=== PATIENT | female | born 1995 | race Caucasian/White ===

== ENCOUNTER 2018-12-26 15:01 | Emergency (ER) | payer OTHER, MEDICAID, SELFPAY ==
[2018-12-26 15:12] VITALS: BP 125/73; PULSE 118; RESP 16; TEMP 36.8; O2SAT 100; BMI 23.0
--- NOTE | 2018-12-26 16:11 | ED.DENTAL ---
HPI - Dental/Oral <Yvonne Booth PA-C - Last Filed: 12/26/18 22:18> General Chief complaint: Dental/Oral Stated complaint: MOUTH HURTS Time Seen by Provider: 12/26/18 15:18 Source: patient Mode of arrival: ambulatory Limitations: no limitations History of Present Illness HPI Narrative: This healthy 23-year-old female who denies any chronic medical problems comes in due to worsening left upper tooth pain for about a week. She has a dental appointment in 2 weeks, but felt like it was swollen around the tooth especially last night, a little bit better today, and comes in due to concern for infection. She states she has felt intermittently warm and cold since this started, no temperature is taken, no acute changes in the last couple of days. She denies any recent URI symptoms such as earache or sore throat. Denies any other complaints on systems review. Related Data Previous Rx's Medication Instructions Recorded amoxicillin 500 mg PO Q8H #21 cap 12/26/18 Allergies Allergy/AdvReac Type Severity Reaction Status Date / Time No Known Drug Allergies Allergy Verified 12/26/18 15:16 Review of Systems <Yvonne Booth PA-C - Last Filed: 12/26/18 22:18> Review of Systems ROS Unobtainable: All systems reviewed & are unremarkable except as noted in HPI and below PFSH <Yvonne Booth PA-C - Last Filed: 12/26/18 22:18> Medical History (Updated 12/26/18 @ 16:28 by Yvonne Booth PA-C) No chronic problems (Chronic) Surgical History (Updated 12/26/18 @ 16:28 by Yvonne Booth PA-C) Status post tonsillectomy (Chronic) Social History Smoking Status: Former smoker Social History Smoking Status: Former smoker Exam <Yvonne Booth PA-C - Last Filed: 12/26/18 22:18> Narrative Exam Narrative: GENERAL APPEARANCE: Patient sitting comfortably, in no distress. HEAD: No sinus TTP. EYES: PERRL, EOMI. EARS: Normal auditory canals, TMS intact with normal light reflexes. ORAL CAVITY: Somewhat poor dentition. Left upper molar is discolored and the gumline on the labial surface is mildly erythematous and edematous, tender to touch, no drainage or fluctuance. none present on the lingual surface. THROAT: Normal oropharynx NECK/THYROID: Neck supple, full range of motion LUNGS: Clear to auscultation bilaterally HEART: RRR without murmur, nl S1, S2, no S3 or S4. Initial Vital Signs Initial Vital Signs: Vital Signs Temperature 98.3 F 12/26/18 15:12 Pulse Rate 118 H 12/26/18 15:12 Respiratory Rate 16 12/26/18 15:12 Blood Pressure 125/73 12/26/18 15:12 Pulse Oximetry 100 12/26/18 15:12 <Gerda Arredondo DO - Last Filed: 12/29/18 07:49> Initial Vital Signs Initial Vital Signs: Vital Signs Temperature 98.3 F 12/26/18 15:12 Pulse Rate 118 H 12/26/18 15:12 Respiratory Rate 16 12/26/18 15:12 Blood Pressure 125/73 12/26/18 15:12 Pulse Oximetry 100 12/26/18 15:12 Course <Yvonne Booth PA-C - Last Filed: 12/26/18 22:18> Vital Signs - 8 hr 12/26/18 15:12 12/26/18 16:31 12/26/18 16:34 Temperature 98.3 F Pulse Rate 118 H 95 H Respiratory Rate 16 16 Blood Pressure 125/73 Blood Pressure [Right Arm] 108/70 108/70 Pulse Oximetry 100 100 <Gerda Arredondo DO - Last Filed: 12/29/18 07:49> Vital Signs - 8 hr 12/26/18 15:12 12/26/18 16:31 12/26/18 16:34 Temperature 98.3 F Pulse Rate 118 H 95 H Respiratory Rate 16 16 Blood Pressure 125/73 Blood Pressure [Right Arm] 108/70 108/70 Pulse Oximetry 100 100 Discharge Plan Departure Patient Disposition: Home Clinical Impression: Dental infection Discharge Date/Time: 12/26/18 16:36 Interventions: ED Discharge Assessment Last Done: 12/26/18 16:35 Instructions: DI for Dental Pain Activity Restrictions/Additional Instructions: Please call [facility] when you leave here today and let them know you were in the emergency room and that the tooth that has been giving you pain looked infected and you started an antibiotic. Hopefully they will be able to see you this week. There is also a [facility] in [place]. Please see your PCP or return to the ED if you have acutely worsening symptoms in the interim. Please continue your ibuprofen 3-4 tablets every 8 hours to help with pain and inflammation. Continue your [id number] topical anesthetic on the area. You can also add Tylenol as needed. I have sent in a prescription for antibiotic, amoxicillin, to your pharmacy Prescriptions: New amoxicillin 500 mg capsule 500 mg PO Q8H Qty: 21 RF: 0 Referrals: [facility] [place] [Other] <Gerda Arredondo DO - Last Filed: 12/29/18 07:49> [facility] Attending Trang Attestation: I was immediately available in the department for consultation. Documentation has been reviewed. I agree with assessment and plan.
[2018-12-26 16:31] VITALS: BP 108/70; PULSE 95; RESP 16; O2SAT 100
[2018-12-26 16:34] VITALS: BP 108/70
== END 2018-12-26 16:36 | disposition home or self-care (01) ==
PROVIDERS: Emergency Provider Internal Medicine
DX: K04.7 Periapical abscess without sinus (principal)
CPT/HCPCS: 99282; 99283

== ENCOUNTER 2019-05-10 20:47 | Emergency (ER) | payer OTHER, MEDICAID, SELFPAY ==
[2019-05-10 20:53] VITALS: BP 101/58; PULSE 90; RESP 16; O2SAT 95
--- NOTE | 2019-05-10 21:01 | ED_ITS ---
HPI - Recheck/Abnormal Lab/Rx General Chief Complaint: Recheck/Abnormal Lab/Rx Stated Complaint: Fit for Mcfp Time Seen by Provider: 05/10/19 20:52 Source: patient and police Mode of arrival: other (Please) Limitations: no limitations History of Present Illness HPI narrative: Patient is a 23-year-old female brought in by police for fit for confinement. Patient states she has no medical problems. She states she is currently . She states she is ?for months? . She has been seen prior in this . She states she did have an ultrasound and was told everything was ?okay ?she has not seen a provider since that time. She denies any abdominal pain or vaginal bleeding or loss of fluid or urinary symptoms. She denies any other symptoms. She is brought in for fed for confinement because of her status. Related Data Previous Rx's Medication Instructions Recorded amoxicillin 500 mg PO Q8H #21 cap 12/26/18 vit,[id number] 1 tab PO DAILY #30 tab 05/10/19 [PNV 29-1] Allergies Allergy/AdvReac Type Severity Reaction Status Date / Time No Known Drug Allergies Allergy Verified 12/26/18 15:16 Review of Systems Constitutional Constitutional: Denies headache(s) ENT Ears, Nose, Mouth, and Throat: Denies headache(s) Cardiovascular Cardiovascular: Denies chest pain and Denies dyspnea Respiratory Respiratory: Denies dyspnea Gastrointestinal Gastrointestinal: Denies abdominal pain, Denies nausea and Denies vomiting Genitourinary Genitourinary: Denies dysuria and Denies vaginal discharge Musculoskeletal Musculoskeletal: Denies myalgias and Denies arthralgias Integumentary/Breasts Skin/Breast: Denies lesions and Denies rash Neurologic Neurologic: Denies behavioral changes and Denies headache(s) Psychiatric Psychiatric: Denies behavioral changes Hematologic/Lymphatic Hematologic/Lymphatic: Denies easy bleeding and Denies easy bruising PFSH Medical History No chronic problems (Chronic) Surgical History (Updated 12/26/18 @ 16:28 by Yvonne Booth PA-C) Status post tonsillectomy (Chronic) Social History Smoking Status: Former smoker Social History Smoking Status: Former smoker Exam Initial Vital Signs Initial Vital Signs: Vital Signs Pulse Rate 90 05/10/19 20:53 Respiratory Rate 16 05/10/19 20:53 Blood Pressure 101/58 L 05/10/19 20:53 Pulse Oximetry 95 05/10/19 20:53 Const General: cooperative and comfortable Orientation: alert, awake and oriented x3 HENMT Head: normal to inspection and normocephalic Resp Effort & Inspection: normal respiratory effort Auscultation: clear to auscultation bilaterally Cardio Rate: regular rate Rhythm: regular rhythm GI Other: Gravid abdomen Skin Lesions: no lesions Rashes: no rashes Neuro General: alert and awake Cognition: normal cognition Speech: speech normal Extrem General: normal to inspection and capillary refill normal Psych Appearance: grossly normal and well kempt Course Vital Signs Vital signs: Vital Signs - 8 hr 05/10/19 20:53 Pulse Rate 90 Respiratory Rate 16 Blood Pressure 101/58 L Pulse Oximetry 95 MDM - Recheck/Abnormal Lab/Rx MDM Narrative Medical decision making narrative: Patient is . Her heart tones were in the 150s. She has no symptoms consistent with related issues. She is fit for confinement. She has no other complaints. She is tolerating oral intake. She was given a prescription for vitamins. Was put on her discharge paperwork that she should be taking vitamins on a daily basis. Paperwork was given to patient and police communications operator. Discharge Plan Departure Patient Disposition: Home Clinical Impression: Qualifiers: Weeks of gestation: 20 weeks Qualified Code(s): Z3A.20 - 20 weeks gestation of Discharge Date/Time: 05/10/19 21:19 Activity Restrictions/Additional Instructions: You are fit for assisted. The assisted medical staff does need to follow your status. You do need to receive a daily vitamin. Your given a prescr iption for this. You can return to the emergency department for any new or worsening symptoms Prescriptions: New PNV 29-1 29 mg iron- 1 mg tablet 1 tab PO DAILY Qty: 30 RF: 0 No Action amoxicillin 500 mg capsule 500 mg PO Q8H Qty: 21 RF: 0
== END 2019-05-10 21:19 | disposition home or self-care (01) ==
PROVIDERS: Emergency Provider Emergency Medicine
CPT/HCPCS: 99282

== ENCOUNTER → 2019-07-25 12:59 | Outpatient (CLI) | payer OTHER, MEDICAID, SELFPAY ==
[2019-07-25 14:05] LABS: Add Manual Diff / Slide Review NO; Basophils Absolute Auto 0 /uL (0-100); Basophils Percent Auto 0.1 % (0-2); Eosinophils Absolute Auto 200 /uL (0-450); Eosinophils Percent Auto 1.8 % (2-4); Hematocrit 33.6 % (36-46); Hemoglobin 11.4 g/dL (12.0-16.0); Lymphocytes Absolute Auto 2100 /uL (1100-4500); Mean Corpuscular Hemoglobin 29.9 PG (26-34); Mean Corpuscular Volume 87.9 fL (80-100); Monocytes Absolute Auto 700 /uL (0-900); Monocytes Percent Auto 8.7 % (3-14); Neutrophils Absolute Auto 5500 /uL (1500-7000); Neutrophils Percent Auto 64.4 % (50-75); Platelet Count 192 X10^3/uL (150-400); Red Blood Cell Count 3.82 X10^6/uL (4.0-5.2); Red Cell Distribution Width 12.3 % (11.6-14.8); White Blood Cell Count 8.6 X10^3/uL (4.5-11.0)
[2019-07-25 14:26] LABS: Bilirubin Urine UA NEGATIVE (NEGATIVE); Color Urine UA YELLOW; Glucose Urine UA NEGATIVE (Negative); Ketones Urine UA NEGATIVE (NEGATIVE); Leukocyte Esterase Urine UA TRACE (NEGATIVE); Nitrite Urine UA NEGATIVE (Negative); Occult Blood Urine UA NEGATIVE (Negative); Protein Urine UA NEGATIVE (Negative); Specific Gravity Urine UA 1.015 (1.000-1.035)
[2019-07-25 14:27] LABS: pH Urine UA 6.5 (4.5-8.0)
[2019-07-25 14:28] LABS: Appearance Urine UA Slightly Cloudy; RBC Urine None Seen (0-5/HPF)
[2019-07-25 14:38] LABS: Amorphous Sediment Urine 1+; Bacteria Urine Many (>30); Mucus Urine 1+ (Negative); Squamous Epithelial Cell Urine 0-1 /HPF (0-5/HPF); WBC Urine 10-30/HPF (0-5/HPF)
[2019-07-25 15:19] LABS: Hepatitis B Surface Antigen NEGATIVE s/c (NEGATIVE); Rubella Antibody IgG 52.9 IU/mL (>15)
[2019-07-25 15:56] LABS: HIV 1 & 2 Ab/Ag 4th Gen Combo NEGATIVE (NEGATIVE); Hep C Virus Ab w/Reflex Quant NEGATIVE s/c (NEGATIVE)
[2019-07-28 23:41] LABS: RPR Screen Nonreactive (Nonreactive)
== END ==
PROVIDERS: Visit Provider Family Medicine
DX: O09.32 Supervision of pregnancy with insufficient antenatal care, second trimester (principal); O99.320 Drug use complicating pregnancy, unspecified trimester
CPT/HCPCS: 36415; 80055; 81003; 81015; 86787; 86803; 86850; 86900; 86901; 87077; 87086; 87186; 87389

== ENCOUNTER → 2019-08-03 10:11 | Outpatient (CLI) | payer OTHER, MEDICAID, SELFPAY ==
--- NOTE | 2019-08-03 10:11 | DI.US.S_ITS ---
PROCEDURE: US OB >= 14 WEEKS FETUS INDICATIONS: ANATOMY OUTSIDE/PRIOR DATING DATA: First dating scan (date and location): 08/03/19. Estimated date of delivery (CRYS) from first dating scan: 10/18/19. TECHNIQUE: Real-time scanning was performed of the fetus, with image documentation and biometric measurements. Endovaginal scanning: No COMPARISON: None. FINDINGS: General: A single living intrauterine gestation is present. Presentation: Vertex. Placenta: Placental position is posterior, without previa. Amniotic fluid index: 12.1 cm, normal range is 5-24 cm. heart rate: 141 beats per minute. Maternal cervical canal: 3.2 cm long. Normal lower limit is 2.5 cm. biometrics: Biparietal diameter: 29 weeks Head circumference: 29 weeks 5 days Abdominal circumference: 29 weeks 2 days Femur length: 28 weeks 5 days Estimated gestational age from initial scan: not applicable. Composite gestational age from present scan: 29 weeks 1 day Estimated weight and percentile: 1336 g Measurement variability for biometric dating: +/- 7 days from 14 weeks to 15 weeks 6 days gestation, +/- 10 days from 16 weeks to 21 weeks 6 days gestation, +/- 2 weeks from 22 weeks to 27 weeks 6 days gestation, +/- 3 weeks for 28 weeks gestation or later. weight reference: 4500 g or EFW >90/95% is considered macrosomia or large for gestational age. EFW <10% is small for gestational age. EFW 5% or less is considered intra-uterine growth restriction. Anatomic survey: Neuro: Ventricles are non-dilated at less than 10 mm. cisterna magna and cerebellum are not well visualized. Nuchal skin fold: Not well-visualized. Face: Nose and lips, facial profile are normal. Spine: Not well-visualized. Heart: 4-chambered heart is present, with normal ventricular outflow tracts. Diaphragm: Diaphragm is intact. Stomach: Left-sided stomach is present. Kidneys: No hydronephrosis. Normal is less than 5 mm in 2nd trimester, less than 7 mm in 3rd trimester. Cord: 3-vessel cord has orthotopic insertion. Bladder: Normal in size. Extremities: All 4 extremities identified. IMPRESSION: 1. Single living IUP with mean composite gestational age of 29 weeks 1 day corresponding to ultrasound CRYS of 10/18/19. 2. Limited anatomic survey as above. Posterior fossa, nuchal region, and spine are not well seen. Recommend followup examination. Dictated by: Santo ESPINAL Interpreted: Kirill Gracia MD on 08/03/2019 at 13:10 Approved by: Kirill Gracia M.D. on 08/03/2019 at 16:05
== END ==
PROVIDERS: Visit Provider Family Medicine
DX: Z34.83 Encounter for supervision of other normal pregnancy, third trimester (principal); Z3A.29 29 weeks gestation of pregnancy
CPT/HCPCS: 76811

== ENCOUNTER 2019-10-10 20:56 | Inpatient (IN) | payer OTHER, MEDICAID, SELFPAY ==
--- NOTE | 2019-10-10 21:50 | P.HPOB_ITS ---
OB HPI Date/Time Date of admission: 10/10/19 Date Patient Seen: 10/11/19 Time Patient Seen: 07:30 History of Present Condition Chief complaint: Obs : 4 Para: 0 Estimated Date of Delivery: 10/13/19 Estimated Gestational Age (weeks): 39w5d Narrative: Germaine Porter is a 23 year old at 39w5d who presented in active labor. She had light spotting prior to presentation, and no LOF. She was feeling baby move regularly. Contractions felt like a lot of pelvic pressure, and were occurring every 5 minutes. The pts was complicated by ongoing heroine abuse and Suboxone. She reports last using heroine on 10/09, and last taking Suboxone on 10/08. She is prescribed Suboxone by [facility] in [facility]. The pt had no care throughout this . She came to her OB intake appointment at 28w4d, and had lab work completed and a 3rd trimester ultrasound completed. Her initial urine grew E coli, which was never treated due to the pt not returning phone calls from our clinic. History of Present care: none Dating criteria: other (LMP confirmed by 3rd trimester ultrasound) Ultrasounds: normal mid trimester US Narrative: No care. Heroine and suboxone use during . Preadmission Labs Blood type: A (+) positive -: Antibody screen: negative, GBS status: unknown, HBsAG: negative, HIV: negative and RPR/VDLR: negative -: Rubella: immune and Varicella: immune HCT: 33.6 HCAB: negative Urine: E coli - untreated Prior (ies) History: 08/30/12 - elective 01/28/14 - elective 03/30/19 - spontaneous Evaluation Evaluation Baseline heart rate: 120 Variability: Moderate (11-25) monitor accelerations: Present monitor decelerations: Absent Contraction Frequency (minutes): 5 Uterine Contraction Intensity: Strong/Firm Category of Tracing: I Cervical dilation (cm): 5 Cervical effacement (%): 90 station: 0 PFSH Medical History (Updated 07/25/19 @ 12:21 by Chelsea Beckford RN) Kidney infection (Acute) No chronic problems (Chronic) Surgical History (Updated 07/25/19 @ 12:21 by Chelsea Van Rooyen, RN) Status post tonsillectomy (Chronic) Family History (Updated 07/25/19 @ 12:13 by Chelsea Beckford RN) Father Diabetes mellitus Grandmother Lung cancer Grandfather No problems noted. Grandfather Liver cancer Social History marital status: unmarried,living together education level: high school occupational status: unemployed current occupational exposures/hazards: No special kemal needs: No leisure activities: exercise Smoking Status: Former smoker (FOB smokes - discussed) Meds Home Medications and Allergies Home Medications Medication Instructions Recorded Confirmed Type No Known Home Medications 10/11/19 10/11/19 History Allergies Allergy/AdvReac Type Severity Reaction Status Date / Time No Known Drug Allergies Allergy Verified 07/25/19 13:03 Exam Narrative Exam Narrative: Gen: NAD, laying in bed, appears uncomfortable, fidgeting in bed CV: RRR, no murmurs Resp: clear to auscultation bilaterally Abd: soft, gravid Ext: no edema Objective Labs Result Diagrams: 10/10/19 22:15 Assessment and Plan Assessment and Plan Assessment and Plan narrative: 23yo at 39w5d based on LMP with 3rd tr imester ultrasound who presented in active labor. Pt with no care, and on suboxone while also actively using heroine. Pt did have labs and 3rd trimester ultrasound completed earlier in . Ultrasound not completed, visualized no anomalies. Urine tox positive for opiates and methamphetamines. - Expectant management, anticipate - FHT reassuring - GBS unknown, penicillin given - Rh positive - Epidural for pain control For heroine abuse and suboxone therapy - - Obtain records from [facility], prescriber of suboxone - Social work consulted. Pt interested in inpatient treatment - Pt aware that baby will be transferred due to high risk for withdrawals - Pt showing some evidence of withdrawal today. Dependent on records from [facility], may give Suboxone while in the hospital - HIV testing
[2019-10-10] MEDS: LACTATED RINGERS 1,000 ML 100 ML IV (22:30)
[2019-10-10 22:43] LABS: Add Manual Diff / Slide Review NO; Basophils Absolute Auto 0 /uL (0-100); Basophils Percent Auto 0.1 % (0-2); Eosinophils Absolute Auto 0 /uL (0-450); Eosinophils Percent Auto 0.1 % (2-4); Hematocrit 31.9 % (36-46); Hemoglobin 10.5 g/dL (12.0-16.0); Lymphocytes Absolute Auto 1400 /uL (1100-4500); Lymphocytes Percent Auto 9.7 % (25-40); Mean Corpuscular HGB Conc 32.8 % (30-36); Mean Corpuscular Hemoglobin 25.8 PG (26-34); Mean Corpuscular Volume 78.8 fL (80-100); Monocytes Absolute Auto 1100 /uL (0-900); Monocytes Percent Auto 7.5 % (3-14); Neutrophils Absolute Auto 12300 /uL (1500-7000); Neutrophils Percent Auto 82.6 % (50-75); Platelet Count 170 X10^3/uL (150-400); Red Blood Cell Count 4.05 X10^6/uL (4.0-5.2); Red Cell Distribution Width 13.9 % (11.6-14.8); White Blood Cell Count 14.9 X10^3/uL (4.5-11.0)
[2019-10-10] MEDS: FENT 2MCG/ML BUPIV 0.125% EPI 200 MCG/100 ML PLAST..BAG 11 MCG EPIDURAL (23:30)
[2019-10-10 23:42] VITALS: BP 123/88
[2019-10-10 23:46] LABS: HIV 1 & 2 Ab/Ag 4th Gen Combo NEGATIVE (NEGATIVE)
[2019-10-11] MEDS: LACTATED RINGERS 1,000 ML 100 ML IV ×2 (00:33→07:37)
[2019-10-11] MEDS: PENICILLIN G POTASSIUM 5,000,000 UNIT in DEXTROSE 5% IN WATER 250 ML IV (01:12)
[2019-10-11 01:34] LABS: Ur Creatinine Normal (Normal); Ur Specific Gravity Normal (Normal); Urine pH Normal (Normal)
[2019-10-11 01:35] LABS: UR Morphine/Opiate cutoff 300 Positive (Negative); Urine Amphetamines Negative (Negative); Urine Barbiturates Negative (Negative); Urine Benzodiazepines Negative (Negative); Urine Cocaine Negative (Negative); Urine MDMA Negative (Negative); Urine Methadone Negative (Negative); Urine Methamphetamines Positive (Negative); Urine Oxycodone Negative (Negative); Urine Phencyclidine Negative (Negative); Urine Tetrahydrocannabinol Negative (Negative); Urine Tricyclic Antidepressant Negative (Negative)
[2019-10-11] MEDS: PENICILLIN G POTASSIUM 3,000,000 UNIT/50 ML FROZ.PIGGY 100 UNIT IV ×2 (05:03→09:26)
[2019-10-11] MEDS: FENT 2MCG/ML BUPIV 0.125% EPI 200 MCG/100 ML PLAST..BAG 13 MCG EPIDURAL (06:30)
--- NOTE | 2019-10-11 09:35 | PM.OBPNLAB ---
Date/Time Date Patient Seen: 10/11/19 Time Patient Seen: 08:00 Pain Control Pain control: epidural Pelvic Exam Dilation (cm): 10 Effacement (%): 100 station: +1 Amniotic membrane status: Ruptured Comments: After informed consent, AROM performed. Contractions Contraction intensity: Strong/Firm Status status: Category l Heart Rate Baseline: 165 Monitor Accelerations: Present Monitor Decelerations: Absent Monitor Variability: Moderate Assessment and Plan Comments: 23yo at 39w5d based on LMP with 3rd trimester ultrasound who presented in active labor. Pt with no care, and on suboxone while also actively using heroine. Pt did have labs and 3rd trimester ultrasound completed earlier in . Ultrasound not completed, visualized no anomalies. Urine tox positive for opiates and methamphetamines. AROM performed with production of clear fluid. - Expectant management, anticipate - FHT reassuring. Slight tachycardia - pt just AROMed, afebrile. Will continue to monitor - GBS unknown, penicillin given, received 2 doses thus far - Rh positive - Epidural for pain control For heroine abuse and suboxone therapy - - Obtain records from [facility], prescriber of suboxone - Social work consulted. Pt interested in inpatient treatment - Pt aware that baby will be transferred due to high risk for withdrawals - Pt showing some evidence of withdrawal today. Dependent on records from [facility], may give Suboxone while in the hospital - HIV negative
[2019-10-11] MEDS: OXYTOCIN 10 UNIT/ML VIAL 20 UNIT (10:03)
--- NOTE | 2019-10-11 10:29 | PM.OBPRVD ---
 Events: No Care Labor & Delivery Delivery date: 10/11/19 Intrapartal events: None Cervical ripening method: none Induction method: none Delivery augmentation: rupture of membranes Delivery monitor: external FHT Route of delivery: Episiotomy description: None L&D Laceration Description: Perineal - 2nd Degree and Labial Delivery repair: chromic Estimated blood loss (mL): 400 Anesthesia type: Epidural Complications: None Narrative: PROCEDURE: at 39w5d presented in active labor and was admitted to Labor and Delivery. The patient progressed through the 1st stage over 19 hours. Pain was controlled with an epidural. AROM was performed with production of clear fluid. The pt received a total of 3 doses of penicillin for unknown GBS status. The patient progressed through the 2nd stage over 2 hours and delivered a viable male infant with APGARs 9/9 at 9:54am via without complications. The baby cried immediately, and was placed on maternal abdomen. The cord was clamped and cut after it stopped pulsing. The perineum and vagina were inspected with 2nd degree laceration repaired with 3-O Chromic.. PREPROCEDURE DIAGNOSIS: Intrauterine at 39w5d GBS unknown RH positive Substance abuse No care POSTPROCEDURE DIAGNOSIS: Intrauterine at 39w5d, delivered Same as preprocedure ROM APPEARANCE: Clear BABY A DELIVERY TIME: 9:54am BABY A WEIGHT: 7lb4.1oz BABY A NUCHAL CORD: None PLACENTA DELIVERY TIME: 10:02am PLACENTA APPEARANCE: Intact [place] Baby 1: gender: Male Presentation: vertex position: Right Occiput Anterior Placenta delivery description: Spontaneous cord vessel description: 3 Vessels score (1 min): 9 score (5 min): 9 Plan for aftercare: Normal care Social work consult
--- NOTE | 2019-10-11 12:45 | CM.DANOTE ---
Called to room 8 because pt. has recently given and has been taking saboxone for hisotry of heroine addiction. Nurses report that patient has requested substance abuse rehab because she wants to keep her baby and is motivated to show the state she can be safe. Nursess had removed patient's mother and the baby's father so I could talk to patient I met with patient a couple hours after delivery. She was calm and serene as she held the baby. She seemed very enchanted by him and kept saying how cute and sweet' he was. I asked her about her plans from here. She said she lived with her boyfriend (baby's father) in a trailer locally. He is very happy about being a father and wants to keep the baby if the state takes it away from patient. [facility] currently goes [facility] her [facility]... she's been going there for two months. She is on again and off again with them and [facility] in [facility]. It depends on her living situation. I had a hard time following her timeline with heroine use and care. It seems she has been on Suboxone and Methadone to assist with her heroin addictions for a couple years now She is vague and non-committed to answering when she started. Last year she went to [facility] for Methadone treatment but the boyfriend she had at the time got kicked out so she left. She is now motivated to stay away from heroin for her baby sake. She reports using heroin twice for only a few days earlier in the . She states she is open to watever program she can bounce into. she has no preference to either inpatient or outpatient. L& D nurse is contacting CPS about the patients son.
[2019-10-11] MEDS: IBUPROFEN 600 MG TABLET PO ×2 (15:24→21:37)
[2019-10-11] MEDS: DERMOPLAST SPRAY 20% 60 ML 1 SPRAY TOP (15:25)
[2019-10-12] MEDS: IBUPROFEN 600 MG TABLET PO (04:31)
--- NOTE | 2019-10-12 09:31 | P.DS_ITS ---
Discharge Providers Provider Date of admission: 10/10/19 20:56 Discharge Date: 10/12/19 Consults: 10/11/19 08:02 Consult to ACCOUNTS PAYABLE ADMINISTRATOR - Tomato Grader Routine Comment: ACCOUNTS PAYABLE ADMINISTRATOR Consult: Substance Abuse Assess 10/12/19 10:28 Consult to Customer Solutions Architect Routine Comment: Discharge provider: Vivi Baker MD Summary Hospital Course Date Patient Seen: 10/12/19 Time Patient Seen: 08:30 Procedures: Spontaneous vaginal delivery Hospital Course: The patient presented active labor. She received an epidural for pain control. AROM was performed with production of clear fluid. She had a spontaneous va ginal delivery of a viable baby boy on 10/11/19. A 2nd degree perineal laceration was repaired. , there were no complications. The patient showed no signs of significant withdrawal. At the time of discharge, she was voiding, passing flatus, and ambulating without difficulty. Her lochia was decreasing appropriately. Her pain was adequately controlled. She is not . She had no signs of engorgement. She will follow-up in clinic in 6 weeks for her check. Social work will meet with the pt prior to discharge to help determine inpatient vs outpatient treatment options for her substance abuse. Peripartum Data Delivery Method: Natural Vaginal Laceration description: Perineal - 2nd Degree Episiotomy description: None Procedures: Spontaneous vaginal delivery complications: none [place] 1: Gender: Male Disposition of : other (CPS hold) Status at Discharge Cognitive/behavioral status at discharge: oriented Functional status at discharge: independent ambulation Overall status at discharge: patient is progressing back to baseline Time Spent with Patient Time attestation: Total time spent providing and/or coordinating discharge services: Time spent: Greater than 30 minutes Objective Labs Result Diagrams: 10/10/19 22:15 Exam Narrative Exam Narrative: Gen: NAD, sitting comfortably in bed, appears well CV: RRR, no murmurs Resp: clear to auscultation bilaterally Abd: soft, nontender, normoactive bowel sounds, fundus firm and below the umbilicus Ext: no edema Discharge Plan Discharge Plan Patient Disposition: Home Discharge orders & Medications Prescriptions: New acetaminophen 325 mg Tablet 650 mg PO Q6HR PRN (Reason: Pain, Mild (1-3)) Qty: 30 RF: 0 Dermoplast (with menthol) 20-0.5 % Aerosol 1 spray topical Q1HR PRN (Reason: perineal pain) Qty: 15 RF: 0 docusate sodium [DOK] 100 mg Capsule 100 mg PO DAILY Qty: 30 RF: 0 ibuprofen 600 mg Tablet 600 mg PO Q6HR PRN (Reason: Pain, Mild (1-3)) Qty: 30 RF: 0 ferrous gluconate 324 mg (38 mg iron) Tablet 324 mg PO DAILY Qty: 30 RF: 0 Prenatabs Rx 29 mg iron- 1 mg Tablet 1 tab PO DAILY Qty: 30 RF: 0 Follow up/Referrals: Vivi Baker MD [Physician] - 6 Weeks Skin/Wound/Dressing Care Report to your healthcare provider any signs of infection, such as:: chills, fever, increased pain and unusual drainage Visit Report/Discharge Packet Instructions: DI for Labor and Delivery, Vaginal Visit Report Forms: Patient Portal/API, Stroke Signs & Symptoms
[2019-10-12 10:22] VITALS: BP 112/66; PULSE 81; RESP 17; TEMP 37
--- NOTE | 2019-10-12 15:06 | CM.SWNOTE ---
Addendum entered by EVELIA Oden 10/13/19 16:08: 2.: Spoke w/ BC RN this morning, she was awaiting further communication w/ CPS re: next steps for coordination between MOB, FOB and maternal gma. According to RN, kerry Herron slept the night in the and requested nurses to care for baby boy the entire night. This [employer]ER left the this AM stating to call when more known and if kerry Herron was interested in resources about treatment? Later placed call to and learned that baby boy was being transferred to [facility] for s/sx of w/d and need for observation and treatment, kerry Herron left this AM according to RN JW Original Note: PEACE OFFICER Visit Spoke w/ Dr Baker this AM; she requested PEACE OFFICER visit today to review resources for drug treatment and felt Germaine would be open to suggestions. This PEACE OFFICER asks about detox process from Heroin? Germaine reports last use was 10.09.19. Staff have not witnessed s/sx of w/d since Germaine has been admitted. Dr Baker suggests detox might be helpful before an inpt stay and stresses that Germaine would be the most successful in sobriety if she went to an inpt treatment program. Attempted to speak w/ Germaine x2 today; arrived this morning and Germaine requested this PEACE OFFICER return when her boyfriend was at bedside. This PEACE OFFICER unable to respond to call later from [facility] updating that BF had returned. Attempted again and CPS worker Suki Hemphill# [phone] was visiting w/Germaine and FOB and suggested she f/u w/radha PEACE OFFICER after the visit. Kerry Herron has been DC today but baby German will remain at for now, unless baby shows s/sx of opioid w/d .... at which time baby will be transferred. This PEACE OFFICER is scheduled 10.13.19 as well, will chk in w/BC staff and kerry Herron if she remains here. EVELIA Oden
== END 2019-10-12 11:30 | disposition home or self-care (01) | DRG 560 ==
PROVIDERS: Admitting Provider Family Medicine; Referring Provider Family Medicine; Visit Provider Family Medicine
DX: O99.324 Drug use complicating childbirth (principal); F11.10 Opioid abuse, uncomplicated; F15.10 Other stimulant abuse, uncomplicated; O70.1 Second degree perineal laceration during delivery; Z3A.39 39 weeks gestation of pregnancy; Z37.0 Single live birth; D62 Acute posthemorrhagic anemia; D64.9 Anemia, unspecified; O99.02 Anemia complicating childbirth
CPT/HCPCS: 01967; 36415; 59050; 59409; 80305; 85025; 86850; 86900; 86901; 87389; 99222; 99238; G0379; J2540; J2590

== ENCOUNTER 2020-08-13 13:39 | Inpatient (IN) | payer OTHER, MEDICAID, SELFPAY ==
--- NOTE | 2020-08-13 | DI.US.S_ITS ---
PROCEDURE: US RENAL COMPLETE INDICATIONS: RIGHT FLANK PAIN AND ABDOMINAL PAIN TECHNIQUE: Real-time scanning was performed of the kidneys and bladder, with image documentation. COMPARISON: [facility], CT, KIDNEY/ URETER/BLADDER, 12/07/2014, 23:05. FINDINGS: Kidneys: Kidneys are normal in size. Right kidney measures 11.8 cm long; left kidney measures 11.9 cm long. Right renal cortical thickness is 2.3 cm; left renal cortical thickness is 1.5 cm. Renal cortical echotexture is normal. Mild right hydronephrosis and hydroureter. Trace left renal pelviectasis. No suspicious solid mass lesions. Bladder: Pre-void bladder volume is 42. The patient was unable to void. Pre-void images demonstrate no intraluminal masses or stones. On pre-void images, neither ureteral jets are noted with color Doppler interrogation. (Of note, ureteral jets may not be detectable in up to 25% of cases due to insufficient differences in specific gravity between ureteral and bladder urine). Miscellaneous: No free pelvic fluid. IMPRESSION: 1. There is mild right hydronephrosis and hydroureter. Trace left renal pelviectasis is noted. The finding could be related to . An obstructive stone is not identified in right kidney. 2. Normal left kidney. Dictated by: Michelle Londono M.D. on 08/15/2020 at 10:57 Approved by: Michelle Londono M.D. on 08/15/2020 at 11:00
[2020-08-13 13:55] VITALS: BP 114/59; PULSE 119; RESP 18; TEMP 37.2; O2SAT 100; BMI 24.7
--- NOTE | 2020-08-13 13:55 | DI.US.S_ITS ---
PROCEDURE: US OB LIMITED INDICATIONS: ABDOMEN RIGHT FLANK PAIN. APPROXIMATELY 8 MONTHS . OUTSIDE/PRIOR DATING DATA: Last menstrual period (LMP): Unknown. LMP-based estimated date of delivery (CRYS): Unknown. First dating scan (date and location): 08/13/2020. Estimated date of delivery (CRYS) from first dating scan: 11/23/2020. TECHNIQUE: Real-time scanning was performed of the fetus, with image documentation. Endovaginal scanning: Not performed COMPARISON: None. FINDINGS: A single living intrauterine gestation is present. Presentation: Variable. Placenta: Placental position is posterior , without previa. Amniotic fluid index: 17.9 cm, normal range is 5-24 cm. heart rate: 160 beats per minute. Maternal cervical canal: 3.9 cm long. Normal lower limit is 2.5 cm. Close. BPD: 6.2 cm, 25 weeks 0 days. HC: 23.2 cm, 25 weeks 1 day. AC: 22.8 cm, 27 weeks 1 day. FL: 4.4 cm, 24 weeks 4 days. Estimated gestational age from initial/current scan: 25 weeks 3 days. Estimated gestational weight 873 g. left kidney caliectasis measuring 0.4 cm. No caliectasis in the right kidney. IMPRESSION: 1. [place] living intrauterine at 25 weeks 3 days based on today's ultrasound. 2. Normal placenta and amniotic fluid. 3. Mild left kidney caliectasis. -Recommend attention on follow-up OB ultrasound. -Recommend follow-up anatomic survey. If clinically indicated follow-up maternal renal ultrasound could be performed to evaluate for source of flank pain. Dictated by: Kirill Gracia M.D. on 08/13/2020 at 14:41 Approved by: Kirill Gracia M.D. on 08/13/2020 at 14:48
--- NOTE | 2020-08-13 14:05 | ED_ITS ---
HPI - <WOLF Cates-BC - Last Filed: 08/13/20 18:14> General Chief complaint: OB/Uterine Contractions Stated complaint: abdominal pain Time Seen by Provider: 08/13/20 13:43 Source: patient Mode of arrival: Ambulatory Limitations: no limitations History of Present Illness HPI Narrative: The patient is a 24-year-old female former smoker who presents with a chief complaint of right-sided flank pain the past 2 days. She denies any fevers. States she feels like her muscles hurt. She denies any dysuria urgency or frequency. She states she is approximately 8 months . She has not received any care for this . She states she has 1-year-old at home. She has not taken anything to feel better. She denies any fevers or chills. Denies any nausea vomiting or diarrhea. The patient states she has a remote history of urinary tract infections, but does not feel though symptoms at this point time. She denies any vaginal bleeding or vaginal discha rge. She states that she does not take any prescription medications, though states she takes vitamins. She states she feels good movement. Noted to have history of substance abuse, used to be on Suboxone. No longer currently is. Related Data Previous Rx's Medication Instructions Recorded acetaminophen 650 mg PO Q6HR PRN #30 tab 10/12/19 benzocaine-menthol [Dermoplast 1 spray TOPICAL Q1HR PRN #15 g 10/12/19 (with menthol)] docusate sodium [DOK] 100 mg PO DAILY #30 cap 10/12/19 ferrous gluconate 324 mg PO DAILY #30 tab 10/12/19 ibuprofen 600 mg PO Q6HR PRN #30 tab 10/12/19 vit,[id number] 1 tab PO DAILY #30 tab 10/12/19 [Prenatabs Rx] Allergies Allergy/AdvReac Type Severity Reaction Status Date / Time No Known Drug Allergies Allergy Verified 08/13/20 14:21 Review of Systems <DEE Cates - Last Filed: 08/13/20 18:14> Review of Systems Narrative: GENERAL: See HPI HEENT: Denies sinus pain, ear pain, sore throat, difficulty swallowing, dizziness. RESPIRATORY: Denies dyspnea, cough, wheezing, hemoptysis, sputum. CARDIOVASCULAR: Denies chest pain, palpitations, orthopnea, edema, GASTROINTESTINAL: See HPI : See HPI MUSCULOSKELETAL: denies weakness, joint pain, or bony pain SKIN: Denies rash, skin lesions, or other NEUROLOGIC: Denies weakness, headache, numbness, change in speech, confusion, seizures, incoordination. PSYCHIATRIC: No concerning psychosocial issues. 12 point review of systems is negative except for those stated above Exam <MAJOR CatesBC - Last Filed: 08/13/20 18:14> Narrative Exam Narrative: GENERAL: This is a well-nourished, well-developed patient, in no acute distress HEAD: Atraumatic. Normocephalic. No temporal or scalp tenderness. EYES: Pupils equal round and reactive. Extraocular motions intact. No scleral icterus. No injection or drainage. ENT: Nose without bleeding, purulent drainage or septal hematoma. Wearing a mask. Airway patent. NECK: Trachea midline. No JVD or lymphadenopathy. Supple, nontender, no meningeal signs. CARDIOVASCULAR: Regular rate and rhythm RESPIRATORY: Clear to auscultation. Breath sounds equal bilaterally. No wheezes, rales, or rhonchi. No cough. No increased respiratory effort. No accessory muscle use. GASTROINTESTINAL: Abdomen soft, gravid uterus, non-tender, nondistended.. No guarding. EXTREMITIES: No clubbing, cyanosis, or edema. No joint tenderness, effusion, or edema noted. BACK: Nontender without deformity or crepitance. CVA tenderness right side, no CVA tenderness left side NEURO: AOx3. SKIN: No rash or erythema on visible skin Initial Vital Signs Initial Vital Signs: Vital Signs Temperature 99 F 08/13/20 13:55 Pulse Rate 119 H 08/13/20 13:55 Respiratory Rate 18 08/13/20 13:55 Blood Pressure 114/59 L 08/13/20 13:55 Pulse Oximetry 100 08/13/20 13:55 <Lucia Smith MD - Last Filed: 08/13/20 18:15> Initial Vital Signs Initial Vital Signs: Vital Signs Temperature 99 F 08/13/20 13:55 Pulse Rate 119 H 08/13/20 13:55 Respiratory Rate 18 08/13/20 13:55 Blood Pressure 114/59 L 08/13/20 13:55 Pulse Oximetry 100 08/13/20 13:55 Scores <Cindy DEE Peck - Last Filed: 08/13/20 18:14> GCS Amanda coma scale eye opening: Spontaneous Amanda coma scale verbal response: Orientated [place] coma scale motor response: Obey commands [place] coma scale total score: 15 Course <Cindy CorderoDEE rolle - Last Filed: 08/13/20 18:14> Orders Ordered: ED Orders 08/13/20 13:50 ABO RH Type Stat Complete Blood Count AUTO DIFF Stat Comprehensive Metabolic Panel Stat HCG Quantitative /Beta subunit Stat Lipase Stat 08/13/20 13:55 US OB limited Stat COVID19 Stat 08/13/20 15:40 Urinalysis and Microscopic Stat Urine Culture Stat Urine Drug Screen, Rapid Stat 08/13/20 16:50 Blood Culture Stat Lactated Ringer's (Lactated Ringers) 1,000 mls @ 150 mls/hr IV CONT DAMIAN Last Infusion: 08/13/20 18:04 Dose: 150 mls/hr Documented by: Admin: 08/13/20 18:03 Dose: 150 mls/hr Documented by: MARIAH Discontinued Medications Acetaminophen (Acetaminophen 325 Mg Tablet) 650 mg PO NOW ONE Stop: 08/13/20 16:01 Last Admin: 08/13/20 16:38 Dose: 650 mg Documented by: CASSIA Sodium Chloride (Normal Saline 0.9%) 1,000 mls @ 1,000 mls/hr IV BOLUS ONE Stop: 08/13/20 15:07 Last Infusion: 08/13/20 15:31 Dose: 0 mls/hr Documented by: Admin: 08/13/20 14:20 Dose: 1,000 mls/hr Documented by: CASSIA Ceftriaxone Sodium/Dextrose (Rocephin) 1 gm in 50 mls @ 100 mls/hr IV NOW ONE Stop: 08/13/20 17:20 Last Infusion: 08/13/20 17:40 Dose: 0 mls/hr Documented by: Admin: 08/13/20 17:24 Dose: 100 mls/hr Documented by: CASSIA Vital Signs Vital signs: Vital Signs - 8 hr 08/13/20 13:55 08/13/20 15:30 Temperature 99 F Pulse Rate 119 H 92 H Respiratory Rate 18 Blood Pressure 114/59 L 99/56 L Pulse Oximetry 100 97 <Lucia Smith MD - Last Filed: 08/13/20 18:15> Orders Ordered: ED Orders 08/13/20 13:50 ABO RH Type Stat Complete Blood Count AUTO DIFF Stat Comprehensive Metabolic Panel Stat HCG Quantitative /Beta subunit Stat Lipase Stat 08/13/20 13:55 US OB limited Stat COVID19 Stat 08/13/20 15:40 Urinalysis and Microscopic Stat Urine Culture Stat Urine Drug Screen, Rapid Stat 08/13/20 16:50 Blood Culture Stat Lactated Ringer's (Lactated Ringers) 1,000 mls @ 150 mls/hr IV CONT DAMIAN Last Infusion: 08/13/20 18:04 Dose: 150 mls/hr Documented by: Admin: 08/13/20 18:03 Dose: 150 mls/hr Documented by: MARIAH Discontinued Medications Acetaminophen (Acetaminophen 325 Mg Tablet) 650 mg PO NOW ONE Stop: 08/13/20 16:01 Last Admin: 08/13/20 16:38 Dose: 650 mg Documented by: CASSIA Sodium Chloride (Normal Saline 0.9%) 1,000 mls @ 1,000 mls/hr IV BOLUS ONE Stop: 08/13/20 15:07 Last Infusion: 08/13/20 15:31 Dose: 0 mls/hr Documented by: Admin: 08/13/20 14:20 Dose: 1,000 mls/hr Documented by: CASSIA Ceftriaxone Sodium/Dextrose (Rocephin) 1 gm in 50 mls @ 100 mls/hr IV NOW ONE Stop: 08/13/20 17:20 Last Infusion: 08/13/20 17:40 Dose: 0 mls/hr Documented by: Admin: 08/13/20 17:24 Dose: 100 mls/hr Documented by: CASSIA Vital Signs Vital signs: Vital Signs - 8 hr 08/13/20 13:55 08/13/20 15:30 Temperature 99 F Pulse Rate 119 H 92 H Respiratory Rate 18 Blood Pressure 114/59 L 99/56 L Pulse Oximetry 100 97 MDM - OB/Uterine Contractions <DEE Cates - Last Filed: 08/13/20 18:14> Lab Data Attestation: I reviewed the patient's lab results. Result diagrams: 08/13/20 13:50 08/13/20 13:50 Labs: Lab Results 08/13/20 08/13/20 08/13/20 Range/Units 13:50 13:50 13:50 WBC 17.3 H (4.5-11.0) X10^3/uL RBC 4.22 (4.0-5.2) X10^6/uL Hgb 10.0 L (12.0-16.0) g/dL Hct 31.7 L (36-46) % MCV 75.1 L (80-100) fL MCH 23.6 L (26-34) PG MCHC 31.5 (30-36) % RDW 15.7 H (11.6-14.8) % Plt Count 276 (150-400) X10^3/uL Neut % (Auto) 84.2 H (50-75) % Lymph % (Auto) 6.8 L (25-40) % Jewell % (Auto) 8.5 (3-14) % Eos % (Auto) 0.2 L (2-4) % Baso % (Auto) 0.3 (0-2) % Neut # (Auto) 05292 H (9001-5348) /uL Lymph # (Auto) 1200 (6197-3014) /uL Jewell # (Auto) 1500 H (0-900) /uL Eos # (Auto) 0 (0-450) /uL Baso # (Auto) 0 (0-100) /uL Sodium 130 L (137-145) mmol/L Potassium 3.6 (3.4-5.1) mmol/L Chloride 100 (98-107) mmol/L Carbon Dioxide 26 (22-32) mmol/L BUN 4 L (7-17) mg/dL Creatinine 0.44 L (0.52-1.04) mg/dL Estimated GFR > 60.0 (>60) mL/min BUN/Creatinine Ratio 9.1 (6-22) Glucose 135 H (70-100) mg/dL Calcium 8.6 (8.4-10.2) mg/dL Total Bilirubin 0.4 (0.2-1.3) mg/dL AST 21 (14-36) IU/L ALT 14 (<35) IU/L Alkaline Phosphatase 121 (38-126) U/L Total Protein 7.4 (6.3-8.2) g/dL Albumin 3.7 (3.5-5.0) g/dL Globulin 3.7 (1.7-4.1) g/dL Albumin/Globulin Ratio 1.0 (1.0-2.8) Lipase 19 L (23-300) U/L HCG, Quant 75522 mIU/mL Urine Color Urine Appearance Urine pH (4.5-8.0) Ur Specific [place] (1.000-1.035) Urine Protein (Negative) Urine Glucose (UA) (Negative) g/dL Urine Ketones (NEGATIVE) Urine Occult Blood (Negative) Urine Nitrate (Negative) Urine Bilirubin (NEGATIVE) Urine Urobilinogen (0.2) E.U./dL Ur Leukocyte Esterase (NEGATIVE) Urine RBC (0-5/HPF) Urine WBC (0-5/HPF) Ur Squamous Epith Cells (0-5/HPF) Ur Renal Epithelial Cell (0-1/HPF) Amorphous Sediment Urine Bacteria (None) Urine Mucus (Negative) Ur Culture Indicated? U Opiates 300ng/mL cut (Negative) Ur Oxycodone Screen (Negative) Urine Methadone Screen (Negative) Ur Barbiturates Screen (Negative) U Tricyclic Antidepress (Negative) Ur Phencyclidine Scrn (Negative) Ur Amphetamines Screen (Negative) U Methamphetamines Scrn (Negative) Ur MDMA Scrn (Ecstasy) (Negative) U Benzodiazepines Scrn (Negative) Urine Cocaine Screen (Negative) U Marijuana (THC) Screen (Negative) COVID-19 PCR (Negative) Blood Type A Positive 08/13/20 08/13/20 08/13/20 Range/Units 13:55 15:40 15:40 WBC (4.5-11.0) X10^3/uL RBC (4.0-5.2) X10^6/uL Hgb (12.0-16.0) g/dL Hct (36-46) % MCV (80-100) fL MCH (26-34) PG MCHC (30-36) % RDW (11.6-14.8) % Plt Count (150-400) X10^3/uL Neut % (Auto) (50-75) % Lymph % (Auto) (25-40) % [place] % (Auto) (3-14) % Eos % (Auto) (2-4) % Baso % (Auto) (0-2) % Neut # (Auto) (2732-5167) /uL Lymph # (Auto) (6719-1357) /uL [place]ell # (Auto) (0-900) /uL Eos # (Auto) (0-450) /uL Baso # (Auto) (0-100) /uL Sodium (137-145) mmol/L Potassium (3.4-5.1) mmol/L Chloride (98-107) mmol/L Carbon Dioxide (22-32) mmol/L BUN (7-17) mg/dL Creatinine (0.52-1.04) mg/dL Estimated GFR (>60) mL/min BUN/Creatinine Ratio (6-22) Glucose (70-100) mg/dL Calcium (8.4-10.2) mg/dL Total Bilirubin (0.2-1.3) mg/dL AST (14-36) IU/L ALT (<35) IU/L Alkaline Phosphatase (38-126) U/L Total Protein (6.3-8.2) g/dL Albumin (3.5-5.0) g/dL Globulin (1.7-4.1) g/dL Albumin/Globulin Ratio (1.0-2.8) Lipase (23-300) U/L HCG, Quant mIU/mL Urine Color Yellow Urine Appearance Sl cloudy Urine pH 6.0 (4.5-8.0) Ur Specific [place] 1.015 (1.000-1.035) Urine Protein 1+ H (Negative) Urine Glucose (UA) Negative (Negative) g/dL Urine Ketones Negative (NEGATIVE) Urine Occult Blood 1+ H (Negative) Urine Nitrate Negative (Negative) Urine Bilirubin Negative (NEGATIVE) Urine Urobilinogen 0.2 (0.2) E.U./dL Ur Leukocyte Esterase 3+ H (NEGATIVE) Urine RBC 1-5/hpf (0-5/HPF) Urine WBC >100/hpf H (0-5/HPF) Ur Squamous Epith Cells 1-5 /hpf (0-5/HPF) Ur Renal Epithelial Cell 0-1/hpf (0-1/HPF) Amorphous Sediment 1+ Urine Bacteria Many (>30) H (None) Urine Mucus 2+ H (Negative) Ur Culture Indicated? Specimen cultured U Opiates 300ng/mL cut Negative (Negative) Ur Oxycodone Screen Negative (Negative) Urine Methadone Screen Negative (Negative) Ur Barbiturates Screen Negative (Negative) U Tricyclic Antidepress Negative (Negative) Ur Phencyclidine Scrn Negative (Negative) Ur Amphetamines Screen Negative (Negative) U Methamphetamines Scrn Negative (Negative) Ur MDMA Scrn (Ecstasy) Negative (Negative) U Benzodiazepines Scrn Negative (Negative) Urine Cocaine Screen Negative (Negative) U Marijuana (THC) Screen Negative (Negative) COVID-19 PCR Negative (Negative) Blood Type Urine Dip Bedside Urine Glucose Negative Bedside Urine Bilirubin - Negative Bedside Urine Ketone - Negative Urine Specific [place] 1.020 Bedside Urine Occult Blood +/- Bedside Urine pH 6 Bedside Urine Protein + 30 Bedside Urine Urobilinogen - Negative Bedside Urine Nitrite - Negative Bedside Urine Leukocytes +++ 500 Esterase Imaging Data US - OB: Radiologist's Impression: [address] [place] [id number] ReportSigned Patient: Germaine Porter RMR#: [id number]: [id number]:[id number]/Sex: 24 / FDate of Service: 08/13/20Loc: EDAccession Number: [id number] Procedure: US OB limited Ordering Provider: Cindy Peck PROCEDURE: US OB LIMITED INDICATIONS: ABDOMEN RIGHT FLANK PAIN. APPROXIMATELY 8 MONTHS . OUTSIDE/PRIOR DATING DATA: Last menstrual period (LMP): Unknown. LMP-based estimated date of delivery (CRYS): Unknown. First dating scan (date and location): 08/13/2020. Estimated date of delivery (CRYS) from first dating scan: 11/23/2020. TECHNIQUE: Real-time scanning was performed of the fetus, with image documentation. Endovaginal scanning: Not performed COMPARISON: None. FINDINGS: A single living intrauterine gestation is present. Presentation: Variable. Placenta: Placental position is posterior , without previa. Amniotic fluid index: 17.9 cm, normal range is 5-24 cm. heart rate: 160 beats per minute. Maternal cervical canal: 3.9 cm long. Normal lower limit is 2.5 cm. Close. BPD: 6.2 cm, 25 weeks 0 days. HC: 23.2 cm, 25 weeks 1 day. AC: 22.8 cm, 27 weeks 1 day. FL: 4.4 cm, 24 weeks 4 days. Estimated gestational age from initial/current scan: 25 weeks 3 days. Estimated gestational weight 873 g. left kidney caliectasis measuring 0.4 cm. No caliectasis in the right kidney. IMPRESSION: 1. [place] living intrauterine at 25 weeks 3 days based on today's ultrasound. 2. Normal placenta and amniotic fluid. 3. Mild left kidney caliectasis. -Recommend attention on follow-up OB ultrasound. -Recommend follow-up anatomic survey. If clinically indicated follow-up maternal renal ultrasound could be performed to evaluate for source of flank pain. Dictated by: Kirill Gracia M.D. on 08/13/2020 at 14:41 Approved by: Kirill Gracia M.D. on 08/13/2020 at 14:48 MDM Narrative Medical decision making narrative: The patient is a 24-year-old female who presents with a chief complaint of right-sided flank pain. She states she is almost 8 months , with no care. Lab work is concerning with Leukocytosis, white count 17. Patient does complain of some systemic symptoms. Her urine is concerning for infection, with with blood leukocyte esterase and bacteria. Thus spoke with Dr. Saunders regarding admission for the patient, who kindly accepted the patient. Discussed plan with patient. Blood cultures were taken Prior to Rocephin being given. Patient is accepting to staying in the hospital. <Lucia Smith MD - Last Filed: 08/13/20 18:15> Lab Data Labs: Lab Results 08/13/20 08/13/20 08/13/20 Range/Units 13:50 13:50 13:50 WBC 17.3 H (4.5-11.0) X10^3/uL RBC 4.22 (4.0-5.2) X10^6/uL Hgb 10.0 L (12.0-16.0) g/dL Hct 31.7 L (36-46) % MCV 75.1 L (80-100) fL MCH 23.6 L (26-34) PG MCHC 31.5 (30-36) % RDW 15.7 H (11.6-14.8) % Plt Count 276 (150-400) X10^3/uL Neut % (Auto) 84.2 H (50-75) % Lymph % (Auto) 6.8 L (25-40) % Jew[place] % (Auto) 8.5 (3-14) % Eos % (Auto) 0.2 L (2-4) % Baso % (Auto) 0.3 (0-2) % Neut # (Auto) 13097 H (1628-2211) /uL Lymph # (Auto) 1200 (0272-7642) /uL [place]ell # (Auto) 1500 H (0-900) /uL Eos # (Auto) 0 (0-450) /uL Baso # (Auto) 0 (0-100) /uL Sodium 130 L (137-145) mmol/L Potassium 3.6 (3.4-5.1) mmol/L Chloride 100 (98-107) mmol/L Carbon Dioxide 26 (22-32) mmol/L BUN 4 L (7-17) mg/dL Creatinine 0.44 L (0.52-1.04) mg/dL Estimated GFR > 60.0 (>60) mL/min BUN/Creatinine Ratio 9.1 (6-22) Glucose 135 H (70-100) mg/dL Calcium 8.6 (8.4-10.2) mg/dL Total Bilirubin 0.4 (0.2-1.3) mg/dL AST 21 (14-36) IU/L ALT 14 (<35) IU/L Alkaline Phosphatase 121 (38-126) U/L Total Protein 7.4 (6.3-8.2) g/dL Albumin 3.7 (3.5-5.0) g/dL Globulin 3.7 (1.7-4.1) g/dL Albumin/Globulin Ratio 1.0 (1.0-2.8) Lipase 19 L (23-300) U/L HCG, Quant 94157 mIU/mL Urine Color Urine Appearance Urine pH (4.5-8.0) Ur Specific [place] (1.000-1.035) Urine Protein (Negative) Urine Glucose (UA) (Negative) g/dL Urine Ketones (NEGATIVE) Urine Occult Blood (Negative) Urine Nitrate (Negative) Urine Bilirubin (NEGATIVE) Urine Urobilinogen (0.2) E.U./dL Ur Leukocyte Esterase (NEGATIVE) Urine RBC (0-5/HPF) Urine WBC (0-5/HPF) Ur Squamous Epith Cells (0-5/HPF) Ur Renal Epithelial Cell (0-1/HPF) Amorphous Sediment Urine Bacteria (None) Urine Mucus (Negative) Ur Culture Indicated? U Opiates 300ng/mL cut (Negative) Ur Oxycodone Screen (Negative) Urine Methadone Screen (Negative) Ur Barbiturates Screen (Negative) U Tricyclic Antidepress (Negative) Ur Phencyclidine Scrn (Negative) Ur Amphetamines Screen (Negative) U Methamphetamines Scrn (Negative) Ur MDMA Scrn (Ecstasy) (Negative) U Benzodiazepines Scrn (Negative) Urine Cocaine Screen (Negative) U Marijuana (THC) Screen (Negative) COVID-19 PCR (Negative) Blood Type A Positive 08/13/20 08/13/20 08/13/20 Range/Units 13:55 15:40 15:40 WBC (4.5-11.0) X10^3/uL RBC (4.0-5.2) X10^6/uL Hgb (12.0-16.0) g/dL Hct (36-46) % MCV (80-100) fL MCH (26-34) PG MCHC (30-36) % RDW (11.6-14.8) % Plt Count (150-400) X10^3/uL Neut % (Auto) (50-75) % Lymph % (Auto) (25-40) % [place] % (Auto) (3-14) % Eos % (Auto) (2-4) % Baso % (Auto) (0-2) % Neut # (Auto) (2926-8487) /uL Lymph # (Auto) (0702-0780) /uL [place] # (Auto) (0-900) /uL Eos # (Auto) (0-450) /uL Baso # (Auto) (0-100) /uL Sodium (137-145) mmol/L Potassium (3.4-5.1) mmol/L Chloride (98-107) mmol/L Carbon Dioxide (22-32) mmol/L BUN (7-17) mg/dL Creatinine (0.52-1.04) mg/dL Estimated GFR (>60) mL/min BUN/Creatinine Ratio (6-22) Glucose (70-100) mg/dL Calcium (8.4-10.2) mg/dL Total Bilirubin (0.2-1.3) mg/dL AST (14-36) IU/L ALT (<35) IU/L Alkaline Phosphatase (38-126) U/L Total Protein (6.3-8.2) g/dL Albumin (3.5-5.0) g/dL Globulin (1.7-4.1) g/dL Albumin/Globulin Ratio (1.0-2.8) Lipase (23-300) U/L HCG, Quant mIU/mL Urine Color Yellow Urine Appearance Sl cloudy Urine pH 6.0 (4.5-8.0) Ur Specific [place] 1.015 (1.000-1.035) Urine Protein 1+ H (Negative) Urine Glucose (UA) Negative (Negative) g/dL Urine Ketones Negative (NEGATIVE) Urine Occult Blood 1+ H (Negative) Urine Nitrate Negative (Negative) Urine Bilirubin Negative (NEGATIVE) Urine Urobilinogen 0.2 (0.2) E.U./dL Ur Leukocyte Esterase 3+ H (NEGATIVE) Urine RBC 1-5/hpf (0-5/HPF) Urine WBC >100/hpf H (0-5/HPF) Ur Squamous Epith Cells 1-5 /hpf (0-5/HPF) Ur Renal Epithelial Cell 0-1/hpf (0-1/HPF) Amorphous Sediment 1+ Urine Bacteria Many (>30) H (None) Urine Mucus 2+ H (Negative) Ur Culture Indicated? Specimen cultured U Opiates 300ng/mL cut Negative (Negative) Ur Oxycodone Screen Negative (Negative) Urine Methadone Screen Negative (Negative) Ur Barbiturates Screen Negative (Negative) U Tricyclic Antidepress Negative (Negative) Ur Phencyclidine Scrn Negative (Negative) Ur Amphetamines Screen Negative (Negative) U Methamphetamines Scrn Negative (Negative) Ur MDMA Scrn (Ecstasy) Negative (Negative) U Benzodiazepines Scrn Negative (Negative) Urine Cocaine Screen Negative (Negative) U Marijuana (THC) Screen Negative (Negative) COVID-19 PCR Negative (Negative) Blood Type Urine Dip Bedside Urine Glucose Negative Bedside Urine Bilirubin - Negative Bedside Urine Ketone - Negative Urine Specific [place] 1.020 Bedside Urine Occult Blood +/- Bedside Urine pH 6 Bedside Urine Protein + 30 Bedside Urine Urobilinogen - Negative Bedside Urine Nitrite - Negative Bedside Urine Leukocytes +++ 500 Esterase Discharge Plan Departure Patient Disposition: Admitted as Observation Clinical Impression: Pyelonephritis Qualifiers: Weeks of gestation: 25 weeks Qualified Code(s): Z3A.25 - 25 weeks gestation of Leukocytosis Qualifiers: Leukocytosis type: unspecified Qualified Code(s): D72.829 - Elevated white blood cell count, unspecified Admit Date/Time: 08/13/20 16:51 Admit Provider: Nannette Saunders <Lucia Smith MD - Last Filed: 08/13/20 18:15> Cosign ED Attending Cosignature Attestation: I was immediately available in the department for consultation throughout this patient's visit. I agree with documentation as above. Lucia Smith MD
[2020-08-13 14:15] LABS: Add Manual Diff / Slide Review NO; Basophils Absolute Auto 0 /uL (0-100); Basophils Percent Auto 0.3 % (0-2); Eosinophils Absolute Auto 0 /uL (0-450); Eosinophils Percent Auto 0.2 % (2-4); Hematocrit 31.7 % (36-46); Lymphocytes Absolute Auto 1200 /uL (1100-4500); Lymphocytes Percent Auto 6.8 % (25-40); Mean Corpuscular HGB Conc 31.5 % (30-36); Mean Corpuscular Hemoglobin 23.6 PG (26-34); Mean Corpuscular Volume 75.1 fL (80-100); Monocytes Absolute Auto 1500 /uL (0-900); Monocytes Percent Auto 8.5 % (3-14); Neutrophils Absolute Auto 14600 /uL (1500-7000); Neutrophils Percent Auto 84.2 % (50-75); Platelet Count 276 X10^3/uL (150-400); Red Blood Cell Count 4.22 X10^6/uL (4.0-5.2); Red Cell Distribution Width 15.7 % (11.6-14.8); White Blood Cell Count 17.3 X10^3/uL (4.5-11.0)
[2020-08-13] MEDS: SODIUM CHLORIDE 0.9% 1,000 ML 1000 ML IV (14:20)
[2020-08-13 14:31] LABS: Alanine Aminotransferase 14 IU/L (<35); Albumin 3.7 g/dL (3.5-5.0); Alkaline Phosphatase 121 U/L (38-126); Aspartate Aminotransferase 21 IU/L (14-36); BUN Creatinine Ratio 9.1 (6-22); Bilirubin Total 0.4 mg/dL (0.2-1.3); Blood Urea Nitrogen 4 mg/dL (7-17); Calcium 8.6 mg/dL (8.4-10.2); Carbon Dioxide 26 mmol/L (22-32); Chloride 100 mmol/L (98-107); Estimated Glomerular Filt Rate > 60.0 mL/min (>60); Globulin 3.7 g/dL (1.7-4.1); Glucose 135 mg/dL (70-100); HEMOLYSIS 32 (0-50); Lipase 19 U/L (23-300); Potassium 3.6 mmol/L (3.4-5.1); Sodium 130 mmol/L (137-145); Total Protein 7.4 g/dL (6.3-8.2)
[2020-08-13 14:44] LABS: COVID19 -Nasal RAPID Negative (Negative)
[2020-08-13 15:14] LABS: HCG Quantitative /Beta subunit 33255 mIU/mL
[2020-08-13 15:30] VITALS: BP 99/56; PULSE 92; O2SAT 97
[2020-08-13 15:52] LABS: Bilirubin Urine UA NEGATIVE (NEGATIVE); Color Urine UA YELLOW; Glucose Urine UA NEGATIVE (Negative); Ketones Urine UA NEGATIVE (NEGATIVE); Leukocyte Esterase Urine UA 3+ (NEGATIVE); Nitrite Urine UA NEGATIVE (Negative); Occult Blood Urine UA 1+ (Negative); Protein Urine UA 1+ (Negative); Specific Gravity Urine UA 1.015 (1.000-1.035); Urobilinogen Urine UA 0.2 E.U./dL (0.2)
[2020-08-13 15:57] LABS: UR Morphine/Opiate cutoff 300 Negative (Negative); Ur Creatinine Normal (Normal); Ur Specific Gravity Normal (Normal); Urine Amphetamines Negative (Negative); Urine Barbiturates Negative (Negative); Urine Benzodiazepines Negative (Negative); Urine Cocaine Negative (Negative); Urine MDMA Negative (Negative); Urine Methadone Negative (Negative); Urine Methamphetamines Negative (Negative); Urine Oxycodone Negative (Negative); Urine Phencyclidine Negative (Negative); Urine Tetrahydrocannabinol Negative (Negative); Urine Tricyclic Antidepressant Negative (Negative); Urine pH Normal (Normal)
[2020-08-13 16:01] LABS: Appearance Urine UA SL CLOUDY
[2020-08-13 16:02] LABS: Amorphous Sediment Urine 1+; Bacteria Urine Many (>30); Culture Indicated Urine Specimen Cultured; Mucus Urine 2+ (Negative); RBC Urine 1-5/HPF (0-5/HPF); Renal Epithelial Cells Urine 0-1/HPF (0-1/HPF); Squamous Epithelial Cell Urine 1-5 /HPF (0-5/HPF); WBC Urine >100/HPF (0-5/HPF)
[2020-08-13] MEDS: ACETAMINOPHEN 325 MG TABLET 650 MG PO ×2 (16:38→23:43)
[2020-08-13] MEDS: CEFTRIAXONE 1 GM/50 ML FROZ.PIGGY IV (17:24)
[2020-08-13] MEDS: LACTATED RINGERS 1,000 ML 150 ML IV (18:03)
[2020-08-13 18:15] VITALS: BP 101/55; PULSE 91; RESP 20; TEMP 36.3; O2SAT 100
[2020-08-13 18:20] VITALS: BMI 23.6
--- NOTE | 2020-08-13 18:30 | PM.HP.1 ---
History of Present Illness History of Present Illness Date Patient Seen: 08/13/20 Time Patient Seen: 18:31 Date of Onset of Symptoms: 08/11/20 Chief complaint: abdominal pain Narrative: This patient has a 24-year-old at 25 weeks gestation by today's ultrasound, presenting to the emergency room with signs and symptoms of pyelonephritis. The patient has a history of multiple episodes of pyelonephritis per year throughout her life, both would and when not, but reports that she has never ?gotten around? to seeing a urologist. She reports that her symptoms began 3 days ago, with fatigue, lower back cramping, dysuria, and progressive fevers and chills and right upper back and flank pain. The patient denies hematuria, vaginal bleeding, discharge, or loss of fluid, uterine contractions or cramping, or decreased movement. She denies chest pain, trouble breathing, headaches, visual changes, or any other associated symptoms. The patient reports that she did not get care due to fear of COVID, and denies use of any toxic substances during this . She has a negative U tox on admission. The patient reported an uncomplicated term vaginal delivery in September of 2019. Records review indicates use of Suboxone and heroin during that , minimal care, presentation with both pyelonephritis and in labor at term. Records review does otherwise indicate an obstetrically uncomplicated delivery. Review of records indicates 2 prior early elective abortions and 1 miscarriage, the patient denies this today. She denies any other contributory medical or surgical history, denies any contributory family history, and the patient today denies any history of substance abuse, currently or at any time during her life. Patient History Medical History Kidney infection Miscarriage No chronic problems Vaginal delivery Surgical History Status post tonsillectomy Family & Social History Family History Father Diabetes mellitus Grandmother Lung cancer Grandfather No problems noted. Grandfather Liver cancer Social History: household members significant other Prior Living Arrangements House Safety & Behavioral: Feels Safe in Current Yes Environment Suicidal Ideation Description None Suicide Plan Description No Plan Tobacco & Substance use: Smoking Status Former smoker alcohol intake former Substance Use Type former substance user,heroin Meds Home Medications and Allergies Home Medications Medication Instructions Recorded Confirmed Type acetaminophen 650 mg PO Q6HR PRN #30 tab 10/12/19 Rx benzocaine-menthol [Dermoplast 1 spray TOPICAL Q1HR PRN #15 g 10/12/19 Rx (with menthol)] docusate sodium [DOK] 100 mg PO DAILY #30 cap 10/12/19 Rx ferrous gluconate 324 mg PO DAILY #30 tab 10/12/19 Rx ibuprofen 600 mg PO Q6HR PRN #30 tab 10/12/19 Rx vit,[id number] 1 tab PO DAILY #30 tab 10/12/19 Rx [Prenatabs Rx] Allergies Allergy/AdvReac Type Severity Reaction Status Date / Time No Known Drug Allergies Allergy Verified 08/13/20 14:21 Review of Systems Constitutional Constitutional: Reports system reviewed and no additional complaints, except as documented Cardiovascular Cardiovascular: Reports system reviewed and no additional complaints, except as documented Respiratory Respiratory: Reports system reviewed and no additional complaints, except as documented Gastrointestinal Gastrointestinal: Reports as per HPI Genitourinary Genitourinary: Reports as per HPI Musculoskeletal Musculoskeletal: Reports as per HPI Neurologic Neurologic: Reports as per HPI Exam Vital Signs (past 8 hours): - 08/13/20 13:55 08/13/20 15:30 Temperature 99 F Pulse Rate 119 H 92 H Respiratory Rate 18 Blood Pressure 114/59 L 99/56 L Pulse Oximetry 100 97 Oxygen Delivery Method Room Air Narrative Exam Narrative: Patient sitting up in bed, mobile, nontoxic appearing. Const General: cooperative, comfortable and disheveled Orientation: alert, awake and oriented x3 Resp Effort & Inspection: normal respiratory effort Auscultation: clear to auscultation bilaterally Cardio Rate: regular rate Rhythm: regular rhythm GI Inspection: no scars Palpation: soft and No tender (Appropriately gravid, no suprapubic tenderness) Other: Pronounced right CVA tenderness, no left CVA tenderness Skin General: no rashes or lesions noted, No scars and warm Rashes: rash noted Wounds: wound noted Neuro General: CN's II-XI intact bilaterally Extrem General: normal to inspection Psych Appearance: grossly normal and disheveled Mental Status: mental status grossly normal Speech and Movement: speech and movement normal Affect: normal affect Objective Labs Result Diagrams: 08/13/20 13:50 08/13/20 13:50 Labs: Laboratory Results - last 24 hr 08/13/20 08/13/20 08/13/20 13:50 13:50 13:50 WBC 17.3 H RBC 4.22 Hgb 10.0 L Hct 31.7 L MCV 75.1 L MCH 23.6 L MCHC 31.5 RDW 15.7 H Plt Count 276 Neut % (Auto) 84.2 H Lymph % (Auto) 6.8 L [place] % (Auto) 8.5 Eos % (Auto) 0.2 L Baso % (Auto) 0.3 Neut # (Auto) 63857 H Lymph # (Auto) 1200 [place] # (Auto) 1500 H Eos # (Auto) 0 Baso # (Auto) 0 Sodium 130 L Potassium 3.6 Chloride 100 Carbon Dioxide 26 BUN 4 L Creatinine 0.44 L Estimated GFR > 60.0 BUN/Creatinine Ratio 9.1 Glucose 135 H Calcium 8.6 Total Bilirubin 0.4 AST 21 ALT 14 Alkaline Phosphatase 121 Total Protein 7.4 Albumin 3.7 Globulin 3.7 Albumin/Globulin Ratio 1.0 Lipase 19 L HCG, Quant 70658 Urine Color Urine Appearance Urine pH Ur Specific [place] Urine Protein Urine Glucose (UA) Urine Ketones Urine Occult Blood Urine Nitrate Urine Bilirubin Urine Urobilinogen Ur Leukocyte Esterase Urine RBC Urine WBC Ur Squamous Epith Cells Ur Renal Epithelial Cell Amorphous Sediment Urine Bacteria Urine Mucus Ur Culture Indicated? U Opiates 300ng/mL cut Ur Oxycodone Screen Urine Methadone Screen Ur Barbiturates Screen U Tricyclic Antidepress Ur Phencyclidine Scrn Ur Amphetamines Screen U Methamphetamines Scrn Ur MDMA Scrn (Ecstasy) U Benzodiazepines Scrn Urine Cocaine Screen U Marijuana (THC) Screen COVID-19 PCR Blood Type A Positive 08/13/20 08/13/20 08/13/20 13:55 15:40 15:40 WBC RBC Hgb Hct MCV MCH MCHC RDW Plt Count Neut % (Auto) Lymph % (Auto) [place] % (Auto) Eos % (Auto) Baso % (Auto) Neut # (Auto) Lymph # (Auto) [place] # (Auto) Eos # (Auto) Baso # (Auto) Sodium Potassium Chloride Carbon Dioxide BUN Creatinine Estimated GFR BUN/Creatinine Ratio Glucose Calcium Total Bilirubin AST ALT Alkaline Phosphatase Total Protein Albumin Globulin Albumin/Globulin Ratio Lipase HCG, Quant Urine Color Yellow Urine Appearance Sl cloudy Urine pH 6.0 Ur Specific [place] 1.015 Urine Protein 1+ H Urine Glucose (UA) Negative Urine Ketones Negative Urine Occult Blood 1+ H Urine Nitrate Negative Urine Bilirubin Negative Urine Urobilinogen 0.2 Ur Leukocyte Esterase 3+ H Urine RBC 1-5/hpf Urine WBC >100/hpf H Ur Squamous Epith Cells 1-5 /hpf Ur Renal Epithelial Cell 0-1/hpf Amorphous Sediment 1+ Urine Bacteria Many (>30) H Urine Mucus 2+ H Ur Culture Indicated? Specimen cultured U Opiates 300ng/mL cut Negative Ur Oxycodone Screen Negative Urine Methadone Screen Negative Ur Barbiturates Screen Negative U Tricyclic Antidepress Negative Ur Phencyclidine Scrn Negative Ur Amphetamines Screen Negative U Methamphetamines Scrn Negative Ur MDMA Scrn (Ecstasy) Negative U Benzodiazepines Scrn Negative Urine Cocaine Screen Negative U Marijuana (THC) Screen Negative COVID-19 PCR Negative Blood Type Assessment & Plan Assessment and plan (1) Pyelonephritis affecting : Status: Acute Assessment & Plan narrative: This patient is a 24-year-old 031 at 25 and 3 by today's ultrasound with a history complicated by no care, presenting with pyelonephritis. The patient is not septic, with normal blood pressures for an otherwise healthy patient in the 2nd trimester and no fevers. The patient's diagnosis is confirmed by her white count, urinalysis, and right CVA tenderness, especially given her history. Patient will be admitted for IV antibiotics for 24-48 hours, erring on the side of extended treatment given her history of lost to follow-up as an outpatient. She will be admitted with IV fluids, regular diet, with blood cultures and urine cultures pending, and for repeat labs and labs in the morning. A renal ultrasound is pending. - 1g Ceftriaxone q24 hrs - 150ccs/hr LR -regular diet, ambulation ad conner. -patient underwent normal obstetric ultrasound in the emergency room. Discussed with labor and delivery nursing staff, for heart check and tocometry on acute care floor with portable monitor when feasible giving staffing concerns. No clinical signs or symptoms of labor. -CBC, labs in a.m.
[2020-08-13 20:10] LABS: Urine N gonorrhoeae NOT DETECTED
[2020-08-13 20:14] LABS: Urine Chlamydia NOT DETECTED
--- NOTE | 2020-08-13 20:15 | PC.NURSE ---
HR via doppler 135bpm. no contractions.
[2020-08-13 23:43] VITALS: TEMP 38.6
[2020-08-13 23:52] VITALS: BP 99/47; PULSE 112; RESP 16; TEMP 38.3; O2SAT 100
[2020-08-14] VITALS (11 sets, daily range): BP systolic 90–130; BP diastolic 50–70; PULSE 86–108; RESP 16–20; TEMP 36.5–38.6; O2SAT 95–100
[2020-08-14] MEDS: ACETAMINOPHEN 325 MG TABLET PO (00:32)
[2020-08-14] MEDS: diphenhydrAMINE 25 MG TABLET PO (00:32)
[2020-08-14] MEDS: MORPHINE 2 MG/ML INJ IV (00:33)
--- NOTE | 2020-08-14 01:29 | PC.NURSE ---
Addendum entered by Kerrie Tamez R.N. 08/14/20 06:28: Pt hypotensive at 0400, highest obtainable BP lying 97/53. Drinking and eating, fluids running, asymptomatic. [facility] called for consult d/t status, no action needed at that time. Addendum entered by Kerrie Tamez R.N. 08/14/20 01:46: Pt no longer febrile, pain reduced to 4/10, managed with medication, not requesting further interventions. + R CVA tenderness. Original Note: Pt febrile at start of shift with pain 8/10. Tylenol 625 mg given to reduce fever and combat pain, provider [facility] contacted for additional pain medication orders to manage abnormal pain. Pt pain controlled with morphine 2 mg IV, ice given to lower fever.
[2020-08-14] MEDS: LACTATED RINGERS 1,000 ML 150 ML IV (01:31)
[2020-08-14 05:27] LABS: Add Manual Diff / Slide Review NO; Basophils Absolute Auto 0 /uL (0-100); Basophils Percent Auto 0.2 % (0-2); Eosinophils Absolute Auto 100 /uL (0-450); Eosinophils Percent Auto 0.5 % (2-4); Hematocrit 23.9 % (36-46); Hemoglobin 7.7 g/dL (12.0-16.0); Lymphocytes Absolute Auto 1400 /uL (1100-4500); Lymphocytes Percent Auto 9.8 % (25-40); Mean Corpuscular HGB Conc 32.2 % (30-36); Mean Corpuscular Hemoglobin 24.1 PG (26-34); Mean Corpuscular Volume 74.8 fL (80-100); Monocytes Absolute Auto 1600 /uL (0-900); Monocytes Percent Auto 11.1 % (3-14); Neutrophils Absolute Auto 11600 /uL (1500-7000); Neutrophils Percent Auto 78.4 % (50-75); Platelet Count 220 X10^3/uL (150-400); Red Cell Distribution Width 15.3 % (11.6-14.8); White Blood Cell Count 14.8 X10^3/uL (4.5-11.0)
[2020-08-14 05:47] LABS: BUN Creatinine Ratio 13.6 (6-22); Blood Urea Nitrogen 6 mg/dL (7-17); Calcium 8.2 mg/dL (8.4-10.2); Carbon Dioxide 27 mmol/L (22-32); Chloride 106 mmol/L (98-107); Estimated Glomerular Filt Rate > 60.0 mL/min (>60); Glucose 107 mg/dL (70-100); HEMOLYSIS < 15 (0-50); Potassium 3.3 mmol/L (3.4-5.1); Sodium 134 mmol/L (137-145)
[2020-08-14] MEDS: ACETAMINOPHEN 325 MG TABLET 650 MG PO ×2 (08:53→19:16)
--- NOTE | 2020-08-14 10:31 | PM.PN.1 ---
Subjective Subjective Date Patient Seen: 08/14/20 Time Patient Seen: 10:41 Interval history: Patient reports feeling much improved this AM, no further fevers/chills, no further right flank pain. Tolerating PO, voiding, passing flatus, ambulating without dizziness. No contractions, VB, LOF, normal movement. Exam Vital Signs (past 8 hours): - 08/14/20 04:08 08/14/20 08:15 Temperature 98.2 F 98.4 F Pulse Rate 97 H 95 H Respiratory Rate 16 17 Blood Pressure 97/53 L 104/57 L Pulse Oximetry 95 100 Oxygen Delivery Method Room Air Oxygen Flow Rate 0 Narrative Exam Narrative: FHR 140s on bedside doppler, no contractions on toco Const General: cooperative, healthy appearing and comfortable Resp Effort & Inspection: normal respiratory effort Auscultation: clear to auscultation bilaterally Cardio Rate: regular rate Rhythm: regular rhythm GI Palpation: soft and No tender Back/Spine/Pelvis Other: No CVA tenderness Extrem General: normal to inspection Objective Labs Result Diagrams: 08/15/20 04:35 08/15/20 04:35 Labs: Laboratory Results - last 24 hr 08/13/20 08/13/20 08/13/20 13:50 13:50 13:50 WBC 17.3 H RBC 4.22 Hgb 10.0 L Hct 31.7 L MCV 75.1 L MCH 23.6 L MCHC 31.5 RDW 15.7 H Plt Count 276 Neut % (Auto) 84.2 H Lymph % (Auto) 6.8 L [place] % (Auto) 8.5 Eos % (Auto) 0.2 L Baso % (Auto) 0.3 Neut # (Auto) 98787 H Lymph # (Auto) 1200 [place] # (Auto) 1500 H Eos # (Auto) 0 Baso # (Auto) 0 Sodium 130 L Potassium 3.6 Chloride 100 Carbon Dioxide 26 BUN 4 L Creatinine 0.44 L Estimated GFR > 60.0 BUN/Creatinine Ratio 9.1 Glucose 135 H Calcium 8.6 Total Bilirubin 0.4 AST 21 ALT 14 Alkaline Phosphatase 121 Total Protein 7.4 Albumin 3.7 Globulin 3.7 Albumin/Globulin Ratio 1.0 Lipase 19 L HCG, Quant 27684 Urine Color Urine Appearance Urine pH Ur Specific [place] Urine Protein Urine Glucose (UA) Urine Ketones Urine Occult Blood Urine Nitrate Urine Bilirubin Urine Urobilinogen Ur Leukocyte Esterase Urine RBC Urine WBC Ur Squamous Epith Cells Ur Renal Epithelial Cell Amorphous Sediment Urine Bacteria Urine Mucus Ur Culture Indicated? U Opiates 300ng/mL cut Ur Oxycodone Screen Urine Methadone Screen Ur Barbiturates Screen U Tricyclic Antidepress Ur Phencyclidine Scrn Ur Amphetamines Screen U Methamphetamines Scrn Ur MDMA Scrn (Ecstasy) U Benzodiazepines Scrn Urine Cocaine Screen U Marijuana (THC) Screen Ur Chlamydia DNA (PCR) COVID-19 PCR N gonorrhoeae DNA (PCR) Blood Type A Positive Antibody Screen Negative 08/13/20 08/13/20 08/13/20 13:55 15:40 15:40 WBC RBC Hgb Hct MCV MCH MCHC RDW Plt Count Neut % (Auto) Lymph % (Auto) [place] % (Auto) Eos % (Auto) Baso % (Auto) Neut # (Auto) Lymph # (Auto) [place] # (Auto) Eos # (Auto) Baso # (Auto) Sodium Potassium Chloride Carbon Dioxide BUN Creatinine Estimated GFR BUN/Creatinine Ratio Glucose Calcium Total Bilirubin AST ALT Alkaline Phosphatase Total Protein Albumin Globulin Albumin/Globulin Ratio Lipase HCG, Quant Urine Color Yellow Urine Appearance Sl cloudy Urine pH 6.0 Ur Specific [place] 1.015 Urine Protein 1+ H Urine Glucose (UA) Negative Urine Ketones Negative Urine Occult Blood 1+ H Urine Nitrate Negative Urine Bilirubin Negative Urine Urobilinogen 0.2 Ur Leukocyte Esterase 3+ H Urine RBC 1-5/hpf Urine WBC >100/hpf H Ur Squamous Epith Cells 1-5 /hpf Ur Renal Epithelial Cell 0-1/hpf Amorphous Sediment 1+ Urine Bacteria Many (>30) H Urine Mucus 2+ H Ur Culture Indicated? Specimen cultured U Opiates 300ng/mL cut Negative Ur Oxycodone Screen Negative Urine Methadone Screen Negative Ur Barbiturates Screen Negative U Tricyclic Antidepress Negative Ur Phencyclidine Scrn Negative Ur Amphetamines Screen Negative U Methamphetamines Scrn Negative Ur MDMA Scrn (Ecstasy) Negative U Benzodiazepines Scrn Negative Urine Cocaine Screen Negative U Marijuana (THC) Screen Negative Ur Chlamydia DNA (PCR) COVID-19 PCR Negative N gonorrhoeae DNA (PCR) Blood Type Antibody Screen 08/13/20 08/14/20 08/14/20 15:40 05:10 05:10 WBC 14.8 H RBC 3.20 L Hgb 7.7 L Hct 23.9 L MCV 74.8 L MCH 24.1 L MCHC 32.2 RDW 15.3 H Plt Count 220 Neut % (Auto) 78.4 H Lymph % (Auto) 9.8 L [place] % (Auto) 11.1 Eos % (Auto) 0.5 L Baso % (Auto) 0.2 Neut # (Auto) 92406 H Lymph # (Auto) 1400 [place] # (Auto) 1600 H Eos # (Auto) 100 Baso # (Auto) 0 Sodium 134 L Potassium 3.3 L Chloride 106 Carbon Dioxide 27 BUN 6 L Creatinine 0.44 L Estimated GFR > 60.0 BUN/Creatinine Ratio 13.6 Glucose 107 H Calcium 8.2 L Total Bilirubin AST ALT Alkaline Phosphatase Total Protein Albumin Globulin Albumin/Globulin Ratio Lipase HCG, Quant Urine Color Urine Appearance Urine pH Ur Specific [place] Urine Protein Urine Glucose (UA) Urine Ketones Urine Occult Blood Urine Nitrate Urine Bilirubin Urine Urobilinogen Ur Leukocyte Esterase Urine RBC Urine WBC Ur Squamous Epith Cells Ur Renal Epithelial Cell Amorphous Sediment Urine Bacteria Urine Mucus Ur Culture Indicated? U Opiates 300ng/mL cut Ur Oxycodone Screen Urine Methadone Screen Ur Barbiturates Screen U Tricyclic Antidepress Ur Phencyclidine Scrn Ur Amphetamines Screen U Methamphetamines Scrn Ur MDMA Scrn (Ecstasy) U Benzodiazepines Scrn Urine Cocaine Screen U Marijuana (THC) Screen Ur Chlamydia DNA (PCR) Not detected COVID-19 PCR N gonorrhoeae DNA (PCR) Not detected Blood Type Antibody Screen PFSH Medical History Kidney infection Miscarriage No chronic problems Vaginal delivery Surgical History Status post tonsillectomy Family History Father Diabetes mellitus Grandmother Lung cancer Grandfather No problems noted. Grandfather Liver cancer Social History marital status: unmarried,living together household members: significant other and children education level: high school occupational status: unemployed current occupational exposures/hazards: No special kemal needs: No leisure activities: exercise Smoking Status: Former smoker alcohol intake: former Assessment & Plan Assessment & Plan narrative: This patient is admitted with pyelonephritis in , with a history of no care and a dating ultrasound on admission putting her at 25+4. Patient has a history of substance abuse, but had a negative u tox on admission. She is clinically improving on IV ceftriaxone though she spiked a fever overnight, and has reassuring status. Patient will remain admitted until tomorrow for IV antibiotics for at least 24 hours after last fever. - Urine cultures +for gram negative rods with further characterization pending, blood cultures negative - renal US read pending - 1g ceftriaxone q24, next dose today at 1700 - tylenol for pain control - labs added to this AM's labs and pending - Patient reports rn long term care hx anemia, for PO iron 324mg BID - Planning for discharge home tomorrow with a further 10 days of PO abx, outpatient follow up - Social work involved given history of poor adherence to care and substance abuse
[2020-08-14] MEDS: FERROUS SULFATE 325 MG TABLET PO ×2 (12:00→17:02)
[2020-08-14] MEDS: LACTATED RINGERS 1,000 ML 100 ML IV ×2 (12:01→20:40)
[2020-08-14] MEDS: POTASSIUM CHLORIDE 20 MEQ TAB 40 MEQ PO (12:08)
--- NOTE | 2020-08-14 12:24 | CM.DANOTE ---
Patient is a 24 year old female who was admitted on 08/13/20 for Abd Pain. Pt has [facility] [place] and [facility] for insurance and her PCP is not listed. Per [employer], pt admitted with pyelonephritis which pt has a hx of and will receive IV-Abx and fluids. Pt is currently 25 weeks gestation and no care so far, current UDS negative. Not medically stable for discharge yet today. Pt was last admitted in Sep 2019 this year for L&D with healthy baby jr Butcher but lack of care and UDS positive for heroin and suboxone. CPS was contacted and pt was screened in but pt currently has baby living with her at home with Sig Other. Pt had a hx of utilizing [facility] and [facility] for Medication Assisted Tx. SW met bedside with pt and explained role and she confirms that she is still living [place] with her boyfriend (YAA Butcher) and they are in the process of moving into an apartment from a trailer. Mother also lives in the area and is mostly supportive. Pt's currently denies any drug use and UDS was negative and denies any need to be involved in Medication Assisted Tx. Pt states she has not set up care for her as she was worried about COVID but states she plans to set up appts prior to her d/c as once she gets home she's so distracted with caring for Hadley and trying to get sleep that I forget about everything I need to do. Pt states she feels safe in her environment and is connected with [facility] for formula and food stamps. Pt is currently working on getting her drivers license reinstated and currently her boyfriend provides transport, pt unsure if she has [facility] transportation benefits and SW discussed that it could be used for upcoming doctor or mental health appts and pt very interested. MAYANK called [facility] transport and confirms that pt does have Medicaid transportation benefits and provided pt with the Medicaid number to call to set up transportation for future appts. MAYANK called CPS and confirmed pt currently has open CPS case with assigned MAYANK Heath([phone]) who is remaining in close contact with pt. MAYANK called [facility] and left msg regarding pt's admission to the hospital but no specific information and call back number in case CPS needs any information regarding pt. Plan: SW to follow for likely d/c home tomorrow via boyfriend POV if medically stable and any further identified needs. EVELIA Reyes Discharge Planning/Care Management CM Discharge Assessment Start: 08/14/20 12:13 Freq: Status: Active Protocol: Document 08/14/20 12:13 BF (Rec: 08/14/20 12:24 BF [id number]) Discharge Planning Assessment Assigned Retail Parts Professional EVELIA Goodman DPOA/Assigned Designee Name none, informally mother Sena Contact Information [phone] Advance Directives? No Advance Directives on File No History Provided By Patient,Medical Record Has Patient been admitted in last 30 No days? Prior Living Arrangements Mobile home Household Members significant other,children Comment 10 month old layla Butcher Type of transporation used prior to Relies on Others admit Comment attempting to get her drivers license back, Just confirmed she has [employer] transportation benefits Independent with ADL's Yes Is patient alert and oriented? Yes Caregiver for Another Yes: layla Butcher Community Services used prior to Social Work admission: Comment Assigned CPS Bharati Kaiser [phone] Comment Likely home with S.O. Barriers to Discharge No Discharge Plan Home Community Services Social Work Transportation Arrangement Likely Sig Other can transport , but pt does have [employer] transportation benefits but has never used them before Referrals Initiated None needed Review Status In Process Please Provide Date Initial DC 08/14/20 Assessment Was Performed Next Review Type Continued Stay Review
--- NOTE | 2020-08-14 15:31 | PC.NURSE ---
: Pt reports no pain except low back pain from infection. Tylenol given x1 and pt reported med was effective. Has been up indep in room. MD aware of labs and pt started some oral iron and got a dose of k+. Pt's only complaint was her IV beeping freq during the day as it is in her ac. Offered to restart same, however pt declined for now, reports she is a diff start.
[2020-08-14] MEDS: CEFTRIAXONE 1 GM/50 ML FROZ.PIGGY IV (17:02)
[2020-08-15 04:05] VITALS: BP 100/68; PULSE 97; RESP 16; TEMP 36.9; O2SAT 99
[2020-08-15 04:36] LABS: Varicella IgG Antibody <135 index (Immune >165)
[2020-08-15 05:16] LABS: Add Manual Diff / Slide Review NO; Basophils Absolute Auto 100 /uL (0-100); Basophils Percent Auto 1.1 % (0-2); Eosinophils Absolute Auto 100 /uL (0-450); Eosinophils Percent Auto 0.9 % (2-4); Hematocrit 25.1 % (36-46); Hemoglobin 8.2 g/dL (12.0-16.0); Lymphocytes Absolute Auto 2000 /uL (1100-4500); Mean Corpuscular HGB Conc 32.7 % (30-36); Mean Corpuscular Hemoglobin 24.6 PG (26-34); Mean Corpuscular Volume 75.3 fL (80-100); Monocytes Absolute Auto 1400 /uL (0-900); Monocytes Percent Auto 10.5 % (3-14); Neutrophils Absolute Auto 9800 /uL (1500-7000); Neutrophils Percent Auto 72.5 % (50-75); Platelet Count 222 X10^3/uL (150-400); Red Blood Cell Count 3.34 X10^6/uL (4.0-5.2); Red Cell Distribution Width 15.6 % (11.6-14.8); White Blood Cell Count 13.5 X10^3/uL (4.5-11.0)
[2020-08-15 05:37] LABS: BUN Creatinine Ratio 16.7 (6-22); Blood Urea Nitrogen 7 mg/dL (7-17); Calcium 8.2 mg/dL (8.4-10.2); Carbon Dioxide 30 mmol/L (22-32); Chloride 104 mmol/L (98-107); Estimated Glomerular Filt Rate > 60.0 mL/min (>60); Glucose 90 mg/dL (70-100); HEMOLYSIS < 15 (0-50); Potassium 3.6 mmol/L (3.4-5.1); Sodium 134 mmol/L (137-145)
[2020-08-15] MEDS: LACTATED RINGERS 1,000 ML 100 ML IV (06:33)
[2020-08-15 07:36] LABS: RPR Screen Non Reactive (Non Reactive)
[2020-08-15 09:28] VITALS: BP 109/56; PULSE 97; RESP 16; TEMP 36; O2SAT 100
[2020-08-15] MEDS: FERROUS SULFATE 325 MG TABLET PO ×2 (09:33→15:41)
--- NOTE | 2020-08-15 11:02 | PC.NURSE ---
Assess- Patient complained of pain to his lower back 04/08, given oxycodone that has been effective for pain control. He was sitting up in the chair and states that he just was not feeling well. OT was going to help him shower but he wanted to lay down. called and states that if patients pain controlled that he may go home later, he will fill out hte paperwork before hand. Dressing to l.side is cdi from graft/harvest site and lower dressing is cdi, will change these to water proof dressing when he goes home. Resting in bed now.
--- NOTE | 2020-08-15 11:15 | PC.NURSE ---
Patient denies lower flank pain. She is up ad conner, offered a shower, she knows that she is welcome to take one at her convience. Steady on her feet, patient is 25 weeks . She tolerated her iron well. Denies any nausea and keeping food down well. Center RN will be up to do baby heartones.
[2020-08-15 12:05] VITALS: BP 108/55; PULSE 98; RESP 16; TEMP 36.1; O2SAT 100
[2020-08-15] MEDS: CEFTRIAXONE 1 GM/50 ML FROZ.PIGGY IV (14:51)
--- NOTE | 2020-08-15 15:13 | CM.SWNOTE ---
AGRICULTURAL RESEARCH TECHNICIAN Note Reviewed chart. Spoke w/Dr Saunders this AM, patient will DC home later today after her afternoon dose of IV abx. Met w/patient to review DCP and r/o need for addtl. resources for she and her family and patient denies, states she plans to continue services through [facility], as instructed by CPS team, and feels she has all basic needs met for she and her unborn child. Strongly encouraged patient to f/u w/ fellows for care. Plan: DC home today via private vehicle, hopefully patient will f/u w/ OBGYN closely for care JW
[2020-08-15 15:38] LABS: Hepatitis B Surface Antigen NEGATIVE s/c (NEGATIVE); Rubella Antibody IgG 26.3 IU/mL (>15)
--- NOTE | 2020-08-15 15:41 | PM.DS.1 ---
History of Present Illness History of Present Illness Date Patient Seen: 08/15/20 Time Patient Seen: 09:30 Date of Onset of Symptoms: 08/10/20 Chief complaint: abdominal pain Narrative: This patient is a 24-year-old 031 at 25 weeks 5 days, hospital day 3, admitted with pyelonephritis complicating . The patient has improved significantly on 1 g ceftriaxone Q 24 hours, with reassuring status throughout. The patient has a history of multisubstance abuse, no care prior to this admission with dating ultrasound in the emergency room, though negative urine tox on admission. The patient has a history of frequent kidney infections. Today, she has no complaints obstetrical or otherwise, including no fevers for over 36 hours, no dysuria, no flank pain. Discharge Providers Provider Date of admission: 08/13/20 16:51 Discharge Date: 08/15/20 Discharge provider: Nannette Saunders MD Summary Hospital Course Discharge Diagnosis: Pyelonephritis in Hospital Course: This patient was admitted through emergency room after presenting with signs and symptoms consistent with pyelonephritis. She was administered IV antibiotics, 1 g ceftriaxone Q 24, spiking a fever 6 hours after admission but at no other time. She improved significantly on this treatment, with reassuring status throughout. She was discharged on hospital day 3 to complete 10 further days of outpatient antibiotics along with prophylaxis throughout the . Status at Discharge Cognitive/behavioral status at discharge: oriented Functional status at discharge: independent ambulation Overall status at discharge: patient is back to baseline Time Spent with Patient Time spent: Greater than 30 minutes Exam Vital Signs (past 8 hours): - 08/15/20 09:28 08/15/20 12:05 Temperature 96.8 F L 97 F L Pulse Rate 97 H 98 H Respiratory Rate 16 16 Blood Pressure 109/56 L 108/55 L Pulse Oximetry 100 100 Oxygen Delivery Method Room Air Oxygen Flow Rate 0 Narrative Exam Narrative: Patient ambulating without room without difficulty, well appearing. heart rate 150s on Doppler at bedside, in no contractions on toco. Const General: cooperative, healthy appearing and comfortable Resp Effort & Inspection: normal respiratory effort Auscultation: clear to auscultation bilaterally Cardio Rate: regular rate Rhythm: regular rhythm GI Palpation: soft and No tender Back/Spine/Pelvis Other: Minimal CVA tenderness remaining Objective Labs Result Diagrams: 08/15/20 04:35 08/15/20 04:35 Labs: Laboratory Results - last 24 hr 08/14/20 08/14/20 08/14/20 05:10 05:10 05:10 WBC RBC Hgb Hct MCV MCH MCHC RDW Plt Count Neut % (Auto) Lymph % (Auto) [place] % (Auto) Eos % (Auto) Baso % (Auto) Neut # (Auto) Lymph # (Auto) [place] # (Auto) Eos # (Auto) Baso # (Auto) Sodium Potassium Chloride Carbon Dioxide BUN Creatinine Estimated GFR BUN/Creatinine Ratio Glucose Calcium Serum VDRL Non reactive Hep Bs Antigen Negative Rubella Antibody 26.3 VZV IgG Antibody <135 L 08/15/20 08/15/20 04:35 04:35 WBC 13.5 H RBC 3.34 L Hgb 8.2 L Hct 25.1 L MCV 75.3 L MCH 24.6 L MCHC 32.7 RDW 15.6 H Plt Count 222 Neut % (Auto) 72.5 Lymph % (Auto) 15.0 L [place] % (Auto) 10.5 Eos % (Auto) 0.9 L Baso % (Auto) 1.1 Neut # (Auto) 9800 H Lymph # (Auto) 2000 [place] # (Auto) 1400 H Eos # (Auto) 100 Baso # (Auto) 100 Sodium 134 L Potassium 3.6 Chloride 104 Carbon Dioxide 30 BUN 7 Creatinine 0.42 L Estimated GFR > 60.0 BUN/Creatinine Ratio 16.7 Glucose 90 Calcium 8.2 L Serum VDRL Hep Bs Antigen Rubella Antibody VZV IgG Antibody PFSH Medical History Kidney infection Miscarriage No chronic problems Vaginal delivery Surgical History Status post tonsillectomy Family History Father Diabetes mellitus Grandmother Lung cancer Grandfather No problems noted. Grandfather Liver cancer Social History marital status: unmarried,living together household members: significant other and children education level: high school occupational status: unemployed current occupational exposures/hazards: No special kemal needs: No leisure activities: exercise Smoking Status: Former smoker alcohol intake: former Discharge Assessment & Plan Assessment and Plan Assessment: Pyelonephritis during , chronic iron deficiency anemia Plan of Treatment: This patient improved significantly on IV antibiotics, and was administered a 3rd dose prior to her discharge. She was discharged with instructions to continue outpatient therapy for 10 days. She was discharged on iron for her anemia. She was scheduled for an anatomy scan 4 days after discharge, and will be contacted to initiate care as an outpatient. The danger of pyelonephritis in was stressed to the patient, along with the importance of care. The patient vocalized understanding. Discharge Plan Discharge Plan Patient Disposition: Home Discharge orders & Medications Prescriptions: New cephalexin 500 mg capsule 500 mg PO QID Qty: 30 RF: 0 ferrous gluconate 324 mg (37.5 mg iron) tablet 324 mg PO BID Qty: 120 RF: 0 Continued acetaminophen 325 mg Tablet 650 mg PO Q6HR PRN (Reason: Pain, Mild (1-3)) Qty: 30 RF: 0 Discontinued ibuprofen 600 mg Tablet 600 mg PO Q6HR PRN (Reason: Pain, Mild (1-3)) Qty: 30 RF: 0 Follow up/Referrals: EthelNannette MD [Physician] - 2 Weeks (Pyelonephritis in ) Diet/Activity/Treatments Diet: Regular Activity: Follow up for anatomy scan on 08/19/2020 at 10:40 at [facility] in [facility]. Skin/Wound/Dressing Care Report to your healthcare provider any signs of infection, such as:: chills, fever, night sweats, increased pain, unusual drainage and unusual redness
[2020-08-15 16:07] LABS: HIV 1 & 2 Ab/Ag 4th Gen Combo NEGATIVE (NEGATIVE); Hep C Virus Ab w/Reflex Quant NEGATIVE s/c (NEGATIVE)
== END 2020-08-15 16:30 | disposition home or self-care (01) | DRG 566 ==
LOC: ED 13:43 → AC 18:07
PROVIDERS: Admitting Provider Obstetrics & Gynecology; Emergency Provider Nurse Practitioner Family; Visit Provider Obstetrics & Gynecology
DX: O23.02 Infections of kidney in pregnancy, second trimester (principal); O09.32 Supervision of pregnancy with insufficient antenatal care, second trimester; F11.21 Opioid dependence, in remission; O99.012 Anemia complicating pregnancy, second trimester; D50.9 Iron deficiency anemia, unspecified; Z87.891 Personal history of nicotine dependence; Z3A.25 25 weeks gestation of pregnancy
CPT/HCPCS: 36415; 76770; 76815; 76817; 80048; 80053; 80055; 80305; 81001; 81003; 83690; 84702; 85025; 86787; 86803; 86850; 86900; 86901; 87040; 87077; 87086; 87186; 87389; 87491; 87591; 87635; 96361; 96365; 99221; 99232; 99238; 99283; J2270

== ENCOUNTER → 2020-08-19 10:39 | Outpatient (CLI) | payer OTHER, MEDICAID, SELFPAY ==
[2020-08-13 18:20] VITALS: BMI 23.6
--- NOTE | 2020-08-19 10:40 | DI.US.S_ITS ---
PROCEDURE: US OB >= 14 WEEKS FETUS INDICATIONS: anatomic [place], 25 weeks OUTSIDE/PRIOR DATING DATA: First dating scan (date and location): 08/13/2020 . Estimated date of delivery (CRYS) from first dating scan: 11/23/2020 . TECHNIQUE: Real-time scanning was performed of the fetus, with image documentation and biometric measurements. Endovaginal scanning: No COMPARISON: [facility], OB LIMITED, 08/13/2020, 14:25. [facility], OB >= 14 WEEKS FETUS, 08/03/2019, 10:21. FINDINGS: General: A single living intrauterine gestation is present. Presentation: Vertex. Placenta: Placental position is posterior , without previa. Amniotic fluid index: 18.5 cm, normal range is 5-24 cm. heart rate: 157 beats per minute. Maternal cervical canal: 3.3 cm long. biometrics: Biparietal diameter: 26 weeks 6 days Head circumference: 26 weeks 5 days Abdominal circumference: 27 weeks 1 day Femur length: 26 weeks Estimated gestational age from initial scan: 26 weeks 2 days Composite gestational age from present scan: 26 weeks 5 days Estimated weight and percentile: 364 g; 54th percentile Measurement variability for biometric dating: +/- 7 days from 14 weeks to 15 weeks 6 days gestation, +/- 10 days from 16 weeks to 21 weeks 6 days gestation, +/- 2 weeks from 22 weeks to 27 weeks 6 days gestation, +/- 3 weeks for 28 weeks gestation or later. weight reference: 4500 g or EFW >90/95% is considered macrosomia or large for gestational age. EFW <10% is small for gestational age. EFW 5% or less is considered intra-uterine growth restriction. Anatomic survey: Neuro: Ventricles are non-dilated at less than 10 mm. Cisterna magna is normal at 3-11 mm. Cerebellum is normal in size and morphology. Nuchal skin fold: Normal at less than 6 mm between 14-21 weeks gestational age. Face: Nose and lips, facial profile are normal. Spine: No evidence for spina bifida. Heart: 4-chambered heart is present, with normal ventricular outflow tracts. Left ventricular intracardiac focus. Diaphragm: Diaphragm is intact. Stomach: Left-sided stomach is present. Kidneys: No hydronephrosis. Normal is less than 5 mm in 2nd trimester, less than 7 mm in 3rd trimester. Cord: 3-vessel cord has orthotopic insertion. Bladder: Normal in size. Extremities: All 4 extremities identified. IMPRESSION: 1. Single living IUP redemonstrated and interval growth is normal. 2. Echogenic intracardiac focus: 1.4-1.8 fold likelihood of Down syndrome. If isolated finding, consider aneuploidy screening with cell-free DNA. If aneuploidy screen is negative, no further evaluation needed. 3. Normal appearance of the intracranial neurologic structures as well as the four-chamber heart and cardiac outflow tracts. Dictated by: Santo Key [facility] Interpreted: Trudy Vaughn MD on 08/19/2020 at 13:07 Approved by: Trudy Vaughn MD, PhD on 08/19/2020 at 14:42
== END ==
PROVIDERS: Referring Provider Obstetrics & Gynecology; Visit Provider Obstetrics & Gynecology
DX: Z36.89 Encounter for other specified antenatal screening (principal); Z3A.26 26 weeks gestation of pregnancy
CPT/HCPCS: 76811

== ENCOUNTER → 2020-09-26 13:00 | Outpatient (CLI) | payer OTHER, MEDICAID, SELFPAY ==
[2020-08-19 12:49] VITALS: BMI 23.6
[2020-09-26 16:14] LABS: Hematocrit 27.6 % (36-46); Hemoglobin 8.5 g/dL (12.0-16.0)
[2020-09-26 16:39] LABS: GTT (PREG) 1 Hour PP 50gm Dose 81 mg/dL (76-139)
== END ==
PROVIDERS: Referring Provider Obstetrics & Gynecology; Visit Provider Obstetrics & Gynecology
DX: Z34.83 Encounter for supervision of other normal pregnancy, third trimester (principal); Z3A.31 31 weeks gestation of pregnancy
CPT/HCPCS: 36415; 82950; 85014; 85018

== ENCOUNTER → 2020-10-22 08:31 | Outpatient (CLI) | payer OTHER, MEDICAID, SELFPAY ==
[2020-08-19 12:49] VITALS: BMI 23.6
[2020-10-23 08:13] LABS: Strep Grp B PCR NEG for Grp B Strep
== END ==
PROVIDERS: Visit Provider Obstetrics & Gynecology
DX: Z34.83 Encounter for supervision of other normal pregnancy, third trimester (principal); Z3A.35 35 weeks gestation of pregnancy
CPT/HCPCS: 87653

== ENCOUNTER 2020-10-29 12:08 | Outpatient (CLI) | payer OTHER, MEDICAID, SELFPAY ==
[2020-08-19 12:49] VITALS: BMI 23.6
--- NOTE | 2020-10-29 12:59 | DI.US.S_ITS ---
PROCEDURE: US OB BIOPHYSICAL PROFILE INDICATIONS: DECREASED MOVEMENT OUTSIDE/PRIOR DATING DATA: Last menstrual period (LMP): None known. LMP-based estimated date of delivery (CRYS): Unknown . First dating scan (date and location): 08/13/20 . Estimated date of delivery (CRYS) from first dating scan: 11/23/20 . TECHNIQUE: Real-time scanning was performed of the fetus for biophysical profile, with image documentation. Color and pulse Doppler interrogation was also performed of the umbilical artery near its insertion into the placenta. Endovaginal scanning: Not performed COMPARISON: [facility], OB >= 14 WEEKS FETUS, 10/22/2020, 8:30. [facility] OB >= 14 WEEKS FETUS, 08/19/2020, 11:11. [facility], RENAL COMPLETE, 08/13/2020, 14:50. [facility], OB LIMITED, 08/13/2020, 14:25. FINDINGS: General: A single living intrauterine gestation is present. Presentation: Vertex. Placenta: Placental position is fundal , without previa. Amniotic fluid index: 17.1 cm, normal range is 5-24 cm. Largest pocket 6.6 cm heart rate: 130 beats per minute. Estimated gestational age from initial scan: 36 weeks 3 days . Biophysical profile: Tone: 2 points. Movement: 2 points. Respiration: 2 points. Largest pocket of fluid: 2 points. IMPRESSION: Single living intrauterine fetus in vertex presentation. Normal SLIME Biophysical profile 04/06 as above. Dictated by: Singh Morillo M.D. on 10/29/2020 at 16:44 Approved by: Singh Morillo M.D. on 10/29/2020 at 16:46
--- NOTE | 2020-10-29 13:49 | PM.OBTRLD ---
Visit Information Visit Information Date of evaluation: 10/29/20 Primary OB Provider: Nannette Saunders Reason for Evaluation: Yes non-stress test Comments/Additional reasons for admission: 24yo P1 @36 weeks, late presentation to care with pyelonephritis on presentation. Reports decreased but stable movement for several days, irreg contractions. Vital Signs Vital Signs: 107/62, HR 106 PFSH Medical History Kidney infection Miscarriage No chronic problems Vaginal delivery Surgical History Status post tonsillectomy Family History Father Diabetes mellitus Grandmother Lung cancer Grandfather No problems noted. Grandfather Liver cancer Mother No problems noted. Grandmother No problems noted. Family/Other Ulcerative colitis Social History marital status: unmarried,living together household members: significant other lives independently: Yes caregiver/support person: No housing: house pets and animals: Yes (1 dog.) education level: high school occupational status: unemployed current occupational exposures/hazards: No special kemal needs: No leisure activities: exercise Smoking Status: Former smoker Tobacco: How many years used: 1 quit status: has quit before second hand exposure: Yes (Boyfriend smokes outside. 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 Previous heroin use x 6 years, clean since 09/2019 (per patient).) Evaluation Evaluation Baseline heart rate: 135 Variability: Moderate (11-25) monitor accelerations: Present monitor decelerations: Absent Category of Tracing: Reactive Status: Category l Comments: BPP 8/8, SLIME 14 Diagnosis, Plan/Disposition Plan/Disposition Plan: Patient with reassuring testing, reporting movement in L&D. Precautions for return stressed. OB Disposition: home
== END 2020-10-29 13:35 | disposition home or self-care (01) ==
LOC: LABOR 13:16 → OB 10-30 06:50
PROVIDERS: Referring Provider Obstetrics & Gynecology; Visit Provider Obstetrics & Gynecology
DX: O23.03 Infections of kidney in pregnancy, third trimester (principal); O36.8130 Decreased fetal movements, third trimester, not applicable or unspecified; O47.03 False labor before 37 completed weeks of gestation, third trimester; Z3A.36 36 weeks gestation of pregnancy
CPT/HCPCS: 59025; 76819; G0378; G0379

== ENCOUNTER → 2020-11-08 14:29 | Outpatient (CLI) | payer OTHER, MEDICAID, SELFPAY ==
[2020-11-06 14:45] VITALS: BMI 23.6
== END ==
PROVIDERS: Visit Provider Obstetrics & Gynecology
DX: Z34.03 Encounter for supervision of normal first pregnancy, third trimester (principal); N39.0 Urinary tract infection, site not specified; Z3A.37 37 weeks gestation of pregnancy
CPT/HCPCS: 87077; 87086; 87186

== ENCOUNTER 2020-11-10 18:23 | Outpatient (CLI) | payer OTHER, MEDICAID, SELFPAY ==
[2020-11-06 14:45] VITALS: BMI 23.6
--- NOTE | 2020-11-10 18:43 | P.TNLD_ITS ---
Visit Information Visit Information Date of evaluation: 11/10/20 Primary OB Provider: Nannette Saunders Reason for Evaluation: Yes non-stress test Comments/Additional reasons for admission: Patient is a @38 weeks g estation presenting for NST for decreased movement. Irreg contractions in the setting of currently being treated for UTI, no systemic or pyelo symptoms. No LOF, VB, feeling copious movement in center, no other complaints. Vital Signs Vital Signs: 122/81, HR 106 PFSH Medical History Kidney infection Miscarriage No chronic problems Vaginal delivery Surgical History Status post tonsillectomy Family History Father Diabetes mellitus Grandmother Lung cancer Grandfather No problems noted. Grandfather Liver cancer Mother No problems noted. Grandmother No problems noted. Family/Other Ulcerative colitis Social History marital status: unmarried,living together household members: significant other lives independently: Yes caregiver/support person: No housing: house pets and animals: Yes (1 dog.) education level: high school occupational status: unemployed current occupational exposures/hazards: No special kemal needs: No leisure activities: exercise Smoking Status: Former smoker Tobacco: How many years used: 1 quit status: has quit before second hand exposure: Yes (Boyfriend smokes outside. ) alcohol intake: former substance use type: former substance user Review of Systems Constitutional Constitutional: Reports system reviewed and no additional complaints, except as documented Evaluation Evaluation Baseline heart rate: 130 Variability: Moderate (11-25) monitor accelerations: Present monitor decelerations: Absent Category of Tracing: Reactive Status: Category l Cervical dilation (cm): 3 Cervical effacement (%): 80 station: -3 Comments: Cervix soft, stretchy, does not feel laboring Diagnosis, Plan/Disposition Plan/Disposition Plan: Reactive NST, feeling copious movement. Multiparous dilated cervix but no regular contractions. Discussed precautions for return.
== END 2020-11-10 18:55 | disposition home or self-care (01) ==
LOC: OB 11-11 09:16
PROVIDERS: PCP Obstetrics & Gynecology; Referring Provider Obstetrics & Gynecology; Visit Provider Obstetrics & Gynecology
DX: O36.8190 Decreased fetal movements, unspecified trimester, not applicable or unspecified (principal); Z3A.38 38 weeks gestation of pregnancy
CPT/HCPCS: 59025; G0378; G0379

== ENCOUNTER 2020-11-18 07:33 | Inpatient (IN) | payer OTHER, MEDICAID, SELFPAY ==
[2020-11-06 14:45] VITALS: BMI 23.6
[2020-11-18] MEDS: LACTATED RINGERS 1,000 ML 100 ML IV (08:00)
--- NOTE | 2020-11-18 08:36 | P.HPOB_ITS ---
OB HPI Date/Time Date of admission: 11/18/20 Date Patient Seen: 11/18/20 Time Patient Seen: 08:07 History of Present Condition Chief complaint: MATERNITY : 2 Para: 1 Estimated Date of Delivery: 11/15/20 Estimated Gestational Age (weeks): 39 Narrative: Germaine Porter is a 25 year old 001 at 39 weeks 2 days p resenting for induction of labor for advanced cervical dilation. The patient reports intermittent contractions over the weekend but no loss of fluid or vaginal bleeding, good movement, no other symptoms or concerns. The patient presented for obstetric care during her 2nd trimester with pyelo nephritis in the emergency room, but has been prophylaxed with Keflex. She has a history of anemia with intermittent compliance with oral iron. She has a history of substance abuse though none in this , and has no other contributory medical, surgical, gynecologic, or social history. She has a history of uncomplicated term vaginal delivery. Indications Indication for induction OB: maternal discomfort History of Present care: initiated at week # (25) and number of visits (7) Dating criteria: based on 2nd trimester US only Ultrasounds: normal mid trimester US Obstetrical complications: none Medical complications: none Preadmission Labs Blood type: A (+) positive -: Antibody screen: negative, GBS status: negative, HBsAG: negative, HIV: negative and RPR/VDLR: negative -: Rubella: immune and Varicella: not immune Urine: + e coli 1 hr GTT: 81 Prior (ies) History: G1: 08/30/12, 4 wks, [facility], [place] G2: 01/28/14, 8 wks, [facility] G3: 03/30/19, [facility], 10 wks, [place] G4: 10/11/19, , 39+5, 7#4, M, Evaluation Evaluation Baseline heart rate: 130 Variability: Moderate (11-25) monitor accelerations: Present monitor decelerations: Absent Contraction Frequency (minutes): 3 Uterine Contraction Intensity: Moderate Category of Tracing: Reactive Status: Category l Cervical dilation (cm): 4 Cervical effacement (%): 80 station: -2 PFSH Medical History Kidney infection Miscarriage No chronic problems Vaginal delivery Surgical History Status post tonsillectomy Family History Father Diabetes mellitus Grandmother Lung cancer Grandfather No problems noted. Grandfather Liver cancer Mother No problems noted. Grandmother No problems noted. Family/Other Ulcerative colitis Social History marital status: unmarried,living together household members: significant other lives independently: Yes caregiver/support person: No housing: house pets and animals: Yes (1 dog.) education level: high school occupational status: unemployed current occupational exposures/hazards: No special kemal needs: No leisure activities: exercise Smoking Status: Former smoker Tobacco: How many years used: 1 quit status: has quit before second hand exposure: Yes (Boyfriend smokes outside. ) alcohol intake: former substance use type: former substance user Meds Home Medications and Allergies Home Medications Medication Instructions Recorded Confirmed Type prenat.vits,monica,[id number]-[id number] 1 tab PO DAILY 08/19/20 11/18/20 History Allergies Allergy/AdvReac Type Severity Reaction Status Date / Time No Known Drug Allergies Allergy Verified 10/29/20 11:32 Review of Systems Constitutional Constitutional: Reports system reviewed and no additional complaints, except as documented Cardiovascular Cardiovascular: Reports system reviewed and no additional complaints, except as documented Respiratory Respiratory: Reports system reviewed and no additional complaints, except as documented Gastrointestinal Gastrointestinal: Reports system reviewed and no additional complaints, except as documented Musculoskeletal Musculoskeletal: Reports system reviewed and no additional complaints, except as documented Neurologic Neurologic: Reports system reviewed and no additional complaints, except as documented Exam Vital Signs (past 8 hours): 112/71, HR 96 Const General: cooperative, healthy appearing and comfortable GI Palpation: soft and No tender External Female Exam: normal external appearance Objective Labs Result Diagrams: 11/18/20 08:42 Assessment and Plan Assessment and Plan Assessment and Plan narrative: This patient is admitted for elective induction of labor in the setting of late in labor, cervical dilation of 4/80/-2, and contractions Q 3. Plan is to initiate Pitocin per protocol with AROM shortly thereafter, anticipating vaginal delivery. Given low starting hemoglobin, low threshold for utero tonics. - cEFM, toco
[2020-11-18 08:47] LABS: Add Manual Diff / Slide Review NO; Basophils Absolute Auto 100 /uL (0-100); Basophils Percent Auto 0.4 % (0-2); Eosinophils Absolute Auto 200 /uL (0-450); Eosinophils Percent Auto 1.1 % (2-4); Hematocrit 26.6 % (36-46); Hemoglobin 8.2 g/dL (12.0-16.0); Lymphocytes Absolute Auto 2000 /uL (1100-4500); Lymphocytes Percent Auto 13.8 % (25-40); Mean Corpuscular HGB Conc 30.8 % (30-36); Mean Corpuscular Hemoglobin 20.4 PG (26-34); Mean Corpuscular Volume 66.5 fL (80-100); Monocytes Absolute Auto 1100 /uL (0-900); Neutrophils Absolute Auto 10900 /uL (1500-7000); Neutrophils Percent Auto 76.7 % (50-75); Platelet Count 223 X10^3/uL (150-400); Red Cell Distribution Width 17.4 % (11.6-14.8); White Blood Cell Count 14.2 X10^3/uL (4.5-11.0)
[2020-11-18] MEDS: OXYTOCIN PREMIX 30 UNIT/500 ML PLAST..BAG IV (09:12)
[2020-11-18 09:15] LABS: Anisocytosis 1+; Microcytosis 2+; Platelet Estimate Adequate on smear
[2020-11-18 09:17] LABS: Hypochromasia 2+; Polychromasia 1+; Rouleaux 1+
[2020-11-18 10:15] VITALS: BP 112/71
[2020-11-18 11:10] LABS: COVID19 - ADMIT (NP swab/PCR) Negative (Negative)
--- NOTE | 2020-11-18 11:28 | PM.OBPNLAB ---
Date/Time Date Patient Seen: 11/18/20 Time Patient Seen: 11:28 Pain Control Pain control: epidural Pelvic Exam Dilation (cm): 5 Effacement (%): 80 station: -1 Amniotic membrane status: Ruptured (AROM, clear) Contractions Contractions on admission: regular Monitor mode: External Pitocin rate (mU/min): 3 Contraction frequency (min): 4 Contraction duration (min): 1 Contraction pattern: Regular Status status: Category l Heart Rate Baseline: 130 Monitor Accelerations: Present Monitor Decelerations: Absent Assessment and Plan Assessment: induction ongoing Plan: continuous present management Comments: Anticipate vaginal delivery
--- NOTE | 2020-11-18 14:16 | P.PCNOB_ITS ---
Events: Labor Induction Labor & Delivery Delivery date: 11/18/20 Intrapartal Events: Acceleration and Deceleration Induction method: per pitocin protocol Delivery augmentation: rupture of membranes Delivery monitor: external FHT and external uterine Route of delivery: L&D Laceration Description: Periurethral - 1st Degree and Perineal - 2nd Degree Estimated blood loss (mL): 200 Anesthesia Type: Epidural Narrative: Patient presented for induction of labor for advanced cervical dilation at 39 weeks. She was induced with Pitocin and augmented with AROM, and after an uncomplicated 1st stage, delivered 2 hours after rupture of membranes after a 3 push 2nd stage. There was no nuchal cord, the shoulders delivered with ease, she was delivered of a healthy baby boy, Apgars 8 and 9, weight 3050 g. A small second-degree perineal laceration was repaired with 3 interrupted sutures, and spontaneously hemostatic periurethral lacerations required no repair. The placenta delivered intact and spontaneously shortly thereafter, with a three-vessel cord. The patient was administered Pitocin per usual protocol, and total EBL was 200 cc. There were no immediate complications. [place] Baby 1: gender: Male Presentation: vertex Position: Left Occiput Anterior Placenta delivery description: Spontaneous Cord Vessel Description: 3 Vessels score (1 min): 9 score (5 min): 8 weight: 6 lb 7 oz Plan for aftercare: Routine care
[2020-11-18] MEDS: IBUPROFEN 600 MG TABLET PO ×2 (16:34→22:35)
[2020-11-18] MEDS: DERMOPLAST SPRAY 20% 60 ML 1 SPRAY TOP (16:35)
[2020-11-18] MEDS: ACETAMINOPHEN 325 MG TABLET 650 MG PO (18:53)
[2020-11-18] MEDS: LANOLIN OINT 7 GM 1 APPLIC TOP (20:57)
[2020-11-19] MEDS: ACETAMINOPHEN 325 MG TABLET 650 MG PO ×3 (00:10→15:59)
[2020-11-19] MEDS: IBUPROFEN 600 MG TABLET PO ×2 (05:20→13:25)
[2020-11-19 07:01] LABS: Add Manual Diff / Slide Review NO; Basophils Absolute Auto 100 /uL (0-100); Basophils Percent Auto 0.4 % (0-2); Eosinophils Absolute Auto 200 /uL (0-450); Eosinophils Percent Auto 1.2 % (2-4); Hemoglobin 7.2 g/dL (12.0-16.0); Lymphocytes Absolute Auto 2300 /uL (1100-4500); Lymphocytes Percent Auto 16.8 % (25-40); Mean Corpuscular HGB Conc 31.2 % (30-36); Mean Corpuscular Hemoglobin 20.7 PG (26-34); Mean Corpuscular Volume 66.2 fL (80-100); Monocytes Absolute Auto 1000 /uL (0-900); Monocytes Percent Auto 7.4 % (3-14); Neutrophils Absolute Auto 10300 /uL (1500-7000); Neutrophils Percent Auto 74.2 % (50-75); Platelet Count 203 X10^3/uL (150-400); Red Blood Cell Count 3.48 X10^6/uL (4.0-5.2); Red Cell Distribution Width 17.5 % (11.6-14.8); White Blood Cell Count 13.9 X10^3/uL (4.5-11.0)
[2020-11-19 08:13] LABS: Hypochromasia 2+; Microcytosis 3+
[2020-11-19 08:40] VITALS: TEMP 37.3
[2020-11-19] MEDS: FERROUS SULFATE 325 MG TABLET PO (08:40)
--- NOTE | 2020-11-19 09:46 | P.DS_ITS ---
Discharge Providers Provider Date of admission: 11/18/20 07:33 Discharge Date: 11/19/20 Primary care physician: Nannette Saunders MD Consults: 11/19/20 13:58 Consult to [employer] Routine Comment: Discharge provider: Nannette Saunders MD Summary Hospital Course Date Patient Seen: 11/19/20 Time Patient Seen: 08:45 Diagnoses: Uncomplicated term vaginal delivery Hospital Course: This patient was admitted for induction of labor at 39 weeks gestation with advanced cervical dilation. She was started on Pitocin and AROM was performed shortly thereafter. She progressed from 4 cm to fully dilated within 2 hours, after a 3 contraction 2nd stage, was delivered of a healthy baby boy. There was no nuchal cord, and the shoulders delivered with ease. A very small 2nd degree perineal laceration was repaired with 3 interrupted Vicryl sutures. The placenta delivered spontaneously and intact. She received Pitocin per the usual protocol. Apgars were 8 and 9, weight was 3050 g. There were no intrapartum or complications, and she was discharged on day 1. Peripartum Data Delivery Method: Natural Vaginal Laceration Description: Perineal - 2nd Degree complications: none 1: Gender: Male Status at Discharge Cognitive/behavioral status at discharge: oriented Functional status at discharge: independent ambulation Overall status at discharge: patient is progressing back to baseline Time Spent with Patient Time attestation: Total time spent providing and/or coordinating discharge services: Time spent: Less than 30 minutes Objective Labs Result Diagrams: 11/19/20 06:34 Labs: Laboratory Results - last 24 hr 11/18/20 11/19/20 10:08 06:34 WBC 13.9 H RBC 3.48 L Hgb 7.2 L Hct 23.0 L MCV 66.2 L MCH 20.7 L MCHC 31.2 RDW 17.5 H Plt Count 203 Neut % (Auto) 74.2 Lymph % (Auto) 16.8 L [place] % (Auto) 7.4 Eos % (Auto) 1.2 L Baso % (Auto) 0.4 Neut # (Auto) 04268 H Lymph # (Auto) 2300 [place] # (Auto) 1000 H Eos # (Auto) 200 Baso # (Auto) 100 RBC Morphology Not Reportable Hypochromasia 2+ H Microcytosis 3+ H SARS-CoV-2 (PCR) Negative Exam Vital Signs (past 8 hours): 104/62, heart rate 84, temperature 99.1? F 11/19/20 08:40 Temperature 99.1 F Narrative Exam Narrative: Patient well-appearing, baby. Reports ambulating, voiding, mild lochia, passing flatus, tolerating p.o., pain controlled well on Motrin. Denies headaches, visual changes, chest pain, palpitations, dizziness on ambulation. Resp Effort & Inspection: normal respiratory effort Auscultation: clear to auscultation bilaterally Cardio Rate: regular rate Rhythm: regular rhythm GI Palpation: soft and No tender (Fundus firm, 3 cm below U) Extrem General: normal to inspection Discharge Plan Discharge Plan Patient Disposition: Home Discharge orders & Medications Prescriptions: Continued prenat.vits,monica,[id number] Tablet 1 tab PO DAILY RF: 0 No Action ferrous gluconate 324 mg (37.5 mg iron) tablet 324 mg PO BID Qty: 120 RF: 2 Follow up/Referrals: Nannette Saunders MD [Primary Care Provider] - 6 Weeks ( visit: Please follow up with Dr. Saunders on December 30 at 11:00 please check in at 10:45am. If you have any questions/concerns or need to reschedule please call the clinic at .) Diet/Activity/Treatments Diet: Regular Activity: Nothing in the vagina for 6 weeks. Avoid lifting more than 10-15 lbs for 6 weeks. If you have increasing bleeding, fevers, chills, nausea, vomiting, headaches, or any other symptoms or concerns. Skin/Wound/Dressing Care Report to your healthcare provider any signs of infection, such as:: chills, fever, night sweats, increased pain, unusual drainage and unusual redness Visit Report/Discharge Packet Instructions: DI for Labor and Delivery, Vaginal Stand Alone Forms: Discharge: Care Discharge Data Primary Care Provider: Nannette Saunders
[2020-11-19 13:25] VITALS: TEMP 37.3
[2020-11-19 19:37] VITALS: BP 112/71; PULSE 97; RESP 18; TEMP 37.3
== END 2020-11-19 17:25 | disposition home or self-care (01) | DRG 560 ==
PROVIDERS: Admitting Provider Obstetrics & Gynecology; PCP Obstetrics & Gynecology; Referring Provider Obstetrics & Gynecology; Visit Provider Obstetrics & Gynecology
DX: O70.1 Second degree perineal laceration during delivery (principal); O75.81 Maternal exhaustion complicating labor and delivery; Z3A.39 39 weeks gestation of pregnancy; Z37.0 Single live birth; O71.82 Other specified trauma to perineum and vulva; O99.03 Anemia complicating the puerperium; D64.9 Anemia, unspecified; Z20.822 Contact with and (suspected) exposure to COVID-19
CPT/HCPCS: 01967; 36415; 59050; 59409; 85025; 86850; 86900; 86901; 87635; G0379; J2590